=== PATIENT | male | born 1965 | race Caucasian/White ===

== ENCOUNTER 2017-12-18 03:10 | Inpatient (IN) | payer BC ==
[2017-12-18] MEDS: ONDANSETRON 4MG/2ML VIAL (J2405) IV (04:00)
[2017-12-18] MEDS: NS 1,000 ML IV (04:00)
[2017-12-18 04:28] LABS: BASO # 0.1 10^3/uL (0.0-0.2); BASO % 0.2 % (0.0-1.0); EOS % 0.1 % (0.0-3.0); HEMATOCRIT 48.7 % (42.0-52.0); HEMOGLOBIN 16.8 g/dl (14.0-18.0); IMMATURE GRANULOCYTE % 0.9 % (0-3.0); LYMPH # 1.8 10^3/uL (1.5-4.5); MEAN CORPUSCULAR HEMOGLOBIN 30.1 pg (27.0-33.0); MEAN CORPUSCULAR HGB CONC 34.5 g/dl (32.0-36.5); MEAN CORPUSCULAR VOLUME 87.1 fl (80.0-96.0); MONO # 0.9 10^3/uL (0.0-0.8); MONO % 3.7 % (0.0-5.0); NEUTROPHILS # 22.5 10^3/uL (1.8-7.7); NEUTROPHILS % 88.1 % (36.0-66.0); PLATELET COUNT, AUTOMATED 213 10^3/uL (150-450); RED BLOOD COUNT 5.59 10^6/uL (4.30-6.10); RED CELL DISTRIBUTION WIDTH 12.6 % (11.5-14.5); WHITE BLOOD COUNT 25.6 10^3/uL (4.0-10.0)
[2017-12-18] MEDS: MORPHINE 4 MG/ML 1ML VIAL (J2270) IV ×5 (04:28→16:12)
[2017-12-18 04:52] LABS: ALBUMIN 3.2 GM/DL (3.2-5.2); ALBUMIN/GLOBULIN RATIO 0.86 (1.00-1.93); ALKALINE PHOSPHATASE 78 U/L (45-117); ALT/SGPT 37 U/L (12-78); ANION GAP 10 MEQ/L (8-16); AST/SGOT 18 U/L (7-37); BILIRUBIN,DIRECT 0.3 MG/DL (0.0-0.2); BILIRUBIN,TOTAL 1.1 MG/DL (0.2-1.0); BLOOD UREA NITROGEN 21 MG/DL (7-18); CALCIUM LEVEL 8.6 MG/DL (8.5-10.1); CARBON DIOXIDE LEVEL 25 MEQ/L (21-32); CHLORIDE LEVEL 101 MEQ/L (98-107); CREATININE FOR GFR 1.07 MG/DL (0.70-1.30); GLOMERULAR FILTRATION RATE > 60.0 (>56); GLUCOSE, FASTING 177 MG/DL (70-100); LIPASE 121 U/L (73-393); POTASSIUM SERUM 4.2 MEQ/L (3.5-5.1); SODIUM LEVEL 136 MEQ/L (136-145); TOTAL PROTEIN 6.9 GM/DL (6.4-8.2)
[2017-12-18 04:55] LABS: LACTIC ACID SEPSIS PROTOCOL 1.9 MMOL/L (0.4-2.0)
[2017-12-18] MEDS ORDERED: ISOVUE-370 76% 100ML VIAL (Q9967) As Ordered (04:57)
[2017-12-18] MEDS: CIPROFLOXACIN 400 MG in APPROPRIATE DILUENT 1 EA IV ×2 (05:58→17:40)
[2017-12-18] MEDS: HEPARIN SOD (PORCINE) 5000 UNITS/ML VIAL SC ×3 (06:00→23:37)
[2017-12-18] MEDS: metroNIDAZOLE 500 MG in APPROPRIATE DILUENT 1 EA IV ×3 (06:59→23:40)
[2017-12-18] MEDS ORDERED: ONDANSETRON 4MG/2ML VIAL (J2405) IV (08:00)
[2017-12-18] MEDS ORDERED: ACETAMINOPHEN TAB 650MG DOSE (2X325MG) PO (08:00)
[2017-12-18] MEDS: LR 1,000 ML IV ×3 (08:31→23:40)
[2017-12-18] MEDS: SENOKOT S TAB PO ×2 (10:25→20:20)
[2017-12-18] MEDS: PANTOPRAZOLE 40MG INJ (PROTONIX) (C9113) IV (10:47)
[2017-12-18] MEDS ORDERED: LIDOCAINE 1% MDV 20ML VIAL As Ordered (14:10)
[2017-12-18] MEDS: NORCO, ANEXSIA 5/325MG TABLET (HYDROcodone/ACETAMINOPHEN) PO ×2 (16:13→23:38)
[2017-12-19] MEDS: CIPROFLOXACIN 400 MG in APPROPRIATE DILUENT 1 EA IV ×2 (05:07→17:46)
[2017-12-19] MEDS: HEPARIN SOD (PORCINE) 5000 UNITS/ML VIAL SC ×3 (05:08→21:11)
[2017-12-19] MEDS: KETOROLAC 30 MG/ML VIAL (J1885) IV (05:08)
[2017-12-19] MEDS: metroNIDAZOLE 500 MG in APPROPRIATE DILUENT 1 EA IV ×3 (06:14→22:34)
[2017-12-19 06:30] LABS: HEMATOCRIT 42.6 % (42.0-52.0); MEAN CORPUSCULAR HEMOGLOBIN 29.8 pg (27.0-33.0); MEAN CORPUSCULAR HGB CONC 33.3 g/dl (32.0-36.5); MEAN CORPUSCULAR VOLUME 89.3 fl (80.0-96.0); PLATELET COUNT, AUTOMATED 197 10^3/uL (150-450); RED BLOOD COUNT 4.77 10^6/uL (4.30-6.10); RED CELL DISTRIBUTION WIDTH 12.8 % (11.5-14.5); WHITE BLOOD COUNT 17.8 10^3/uL (4.0-10.0)
[2017-12-19 06:40] LABS: HEMOGLOBIN 14.2 g/dl (14.0-18.0)
[2017-12-19 06:48] LABS: ANION GAP 9 MEQ/L (8-16); BLOOD UREA NITROGEN 19 MG/DL (7-18); CALCIUM LEVEL 8.5 MG/DL (8.5-10.1); CARBON DIOXIDE LEVEL 26 MEQ/L (21-32); CHLORIDE LEVEL 102 MEQ/L (98-107); CREATININE FOR GFR 0.86 MG/DL (0.70-1.30); GLOMERULAR FILTRATION RATE > 60.0 (>56); GLUCOSE, FASTING 135 MG/DL (70-100); MAGNESIUM LEVEL 1.9 MG/DL (1.8-2.4); POTASSIUM SERUM 3.8 MEQ/L (3.5-5.1); SODIUM LEVEL 137 MEQ/L (136-145)
[2017-12-19] MEDS: LR 1,000 ML IV ×3 (09:17→23:42)
[2017-12-19] MEDS: SENOKOT S TAB PO ×2 (09:18→21:10)
[2017-12-19] MEDS: INFLUENZA QUADRIVALENT PF VACCINE 0.5ML SYRINGE (90686) IM (09:19)
[2017-12-19] MEDS: PANTOPRAZOLE 40MG INJ (PROTONIX) (C9113) IV (09:19)
[2017-12-19] MEDS: SIMETHICONE 80 MG CHEW TAB PO ×3 (13:35→21:10)
[2017-12-20] MEDS: CIPROFLOXACIN 400 MG in APPROPRIATE DILUENT 1 EA IV ×2 (05:40→17:05)
[2017-12-20] MEDS: HEPARIN SOD (PORCINE) 5000 UNITS/ML VIAL SC ×3 (05:41→21:47)
[2017-12-20 06:02] LABS: HEMATOCRIT 40.8 % (42.0-52.0); MEAN CORPUSCULAR HEMOGLOBIN 29.8 pg (27.0-33.0); MEAN CORPUSCULAR HGB CONC 34.3 g/dl (32.0-36.5); MEAN CORPUSCULAR VOLUME 86.8 fl (80.0-96.0); PLATELET COUNT, AUTOMATED 214 10^3/uL (150-450); RED CELL DISTRIBUTION WIDTH 12.3 % (11.5-14.5)
[2017-12-20 06:35] LABS: ANION GAP 10 MEQ/L (8-16); BLOOD UREA NITROGEN 15 MG/DL (7-18); CALCIUM LEVEL 8.6 MG/DL (8.5-10.1); CARBON DIOXIDE LEVEL 25 MEQ/L (21-32); CHLORIDE LEVEL 103 MEQ/L (98-107); CREATININE FOR GFR 0.61 MG/DL (0.70-1.30); GLOMERULAR FILTRATION RATE > 60.0 (>56); GLUCOSE, FASTING 109 MG/DL (70-100); MAGNESIUM LEVEL 1.9 MG/DL (1.8-2.4); POTASSIUM SERUM 3.8 MEQ/L (3.5-5.1); SODIUM LEVEL 138 MEQ/L (136-145)
[2017-12-20] MEDS: metroNIDAZOLE 500 MG in APPROPRIATE DILUENT 1 EA IV ×3 (06:46→22:46)
[2017-12-20] MEDS: SIMETHICONE 80 MG CHEW TAB PO ×4 (09:44→21:46)
[2017-12-20] MEDS: PANTOPRAZOLE 40MG INJ (PROTONIX) (C9113) IV (09:45)
[2017-12-20] MEDS: SENOKOT S TAB PO ×2 (09:45→21:46)
[2017-12-20] MEDS: LR 1,000 ML IV (09:53)
[2017-12-20] MEDS: NORCO, ANEXSIA 5/325MG TABLET (HYDROcodone/ACETAMINOPHEN) PO (17:07)
[2017-12-20] MEDS: MORPHINE 4 MG/ML 1ML VIAL (J2270) IV (18:43)
[2017-12-20] MEDS: KETOROLAC 30 MG/ML VIAL (J1885) IV (18:44)
[2017-12-21] MEDS: CIPROFLOXACIN 400 MG in APPROPRIATE DILUENT 1 EA IV ×2 (06:05→17:09)
[2017-12-21] MEDS: HEPARIN SOD (PORCINE) 5000 UNITS/ML VIAL SC ×3 (06:05→22:03)
[2017-12-21] MEDS: metroNIDAZOLE 500 MG in APPROPRIATE DILUENT 1 EA IV ×3 (07:26→22:05)
[2017-12-21 07:40] LABS: HEMATOCRIT 45.2 % (42.0-52.0); HEMOGLOBIN 15.9 g/dl (14.0-18.0); MEAN CORPUSCULAR HEMOGLOBIN 30.5 pg (27.0-33.0); MEAN CORPUSCULAR HGB CONC 35.2 g/dl (32.0-36.5); MEAN CORPUSCULAR VOLUME 86.8 fl (80.0-96.0); PLATELET COUNT, AUTOMATED 232 10^3/uL (150-450); RED BLOOD COUNT 5.21 10^6/uL (4.30-6.10); RED CELL DISTRIBUTION WIDTH 12.3 % (11.5-14.5)
[2017-12-21 08:07] LABS: ANION GAP 9 MEQ/L (8-16); BLOOD UREA NITROGEN 13 MG/DL (7-18); CALCIUM LEVEL 8.1 MG/DL (8.5-10.1); CARBON DIOXIDE LEVEL 26 MEQ/L (21-32); CHLORIDE LEVEL 103 MEQ/L (98-107); CREATININE FOR GFR 0.66 MG/DL (0.70-1.30); GLOMERULAR FILTRATION RATE > 60.0 (>56); GLUCOSE, FASTING 158 MG/DL (70-100); SODIUM LEVEL 138 MEQ/L (136-145)
[2017-12-21] MEDS: SENOKOT S TAB PO ×2 (09:00→22:04)
[2017-12-21] MEDS: SIMETHICONE 80 MG CHEW TAB PO ×4 (09:05→22:03)
[2017-12-21] MEDS: PANTOPRAZOLE 40MG INJ (PROTONIX) (C9113) IV (09:06)
[2017-12-21] MEDS: KETOROLAC 30 MG/ML VIAL (J1885) IV (13:18)
[2017-12-22] MEDS: HEPARIN SOD (PORCINE) 5000 UNITS/ML VIAL SC ×3 (05:59→21:09)
[2017-12-22] MEDS: CIPROFLOXACIN 400 MG in APPROPRIATE DILUENT 1 EA IV (05:59)
[2017-12-22 07:32] LABS: HEMATOCRIT 42.3 % (42.0-52.0); HEMOGLOBIN 14.5 g/dl (14.0-18.0); MEAN CORPUSCULAR HGB CONC 34.3 g/dl (32.0-36.5); MEAN CORPUSCULAR VOLUME 87.6 fl (80.0-96.0); PLATELET COUNT, AUTOMATED 254 10^3/uL (150-450); RED BLOOD COUNT 4.83 10^6/uL (4.30-6.10); RED CELL DISTRIBUTION WIDTH 12.4 % (11.5-14.5); WHITE BLOOD COUNT 11.4 10^3/uL (4.0-10.0)
[2017-12-22 08:41] LABS: ANION GAP 6 MEQ/L (8-16); BLOOD UREA NITROGEN 12 MG/DL (7-18); CALCIUM LEVEL 8.2 MG/DL (8.5-10.1); CARBON DIOXIDE LEVEL 29 MEQ/L (21-32); CHLORIDE LEVEL 102 MEQ/L (98-107); CREATININE FOR GFR 0.71 MG/DL (0.70-1.30); GLOMERULAR FILTRATION RATE > 60.0 (>56); GLUCOSE, FASTING 139 MG/DL (70-100); MAGNESIUM LEVEL 2.1 MG/DL (1.8-2.4); POTASSIUM SERUM 3.4 MEQ/L (3.5-5.1); SODIUM LEVEL 137 MEQ/L (136-145)
[2017-12-22] MEDS: SIMETHICONE 80 MG CHEW TAB PO ×4 (08:44→21:09)
[2017-12-22] MEDS: SENOKOT S TAB PO ×2 (08:44→21:09)
[2017-12-23] MEDS: LevoFLOXacin 750 MG TABLET PO (06:06)
[2017-12-23] MEDS: HEPARIN SOD (PORCINE) 5000 UNITS/ML VIAL SC (06:07)
[2017-12-23 07:18] LABS: HEMATOCRIT 44.2 % (42.0-52.0); HEMOGLOBIN 15.4 g/dl (14.0-18.0); MEAN CORPUSCULAR HEMOGLOBIN 30.3 pg (27.0-33.0); MEAN CORPUSCULAR HGB CONC 34.8 g/dl (32.0-36.5); PLATELET COUNT, AUTOMATED 288 10^3/uL (150-450); RED BLOOD COUNT 5.08 10^6/uL (4.30-6.10); RED CELL DISTRIBUTION WIDTH 12.5 % (11.5-14.5); WHITE BLOOD COUNT 11.4 10^3/uL (4.0-10.0)
[2017-12-23 07:31] LABS: ANION GAP 7 MEQ/L (8-16); BLOOD UREA NITROGEN 12 MG/DL (7-18); CALCIUM LEVEL 8.3 MG/DL (8.5-10.1); CARBON DIOXIDE LEVEL 27 MEQ/L (21-32); CHLORIDE LEVEL 106 MEQ/L (98-107); CREATININE FOR GFR 0.66 MG/DL (0.70-1.30); GLOMERULAR FILTRATION RATE > 60.0 (>56); GLUCOSE, FASTING 110 MG/DL (70-100); MAGNESIUM LEVEL 1.9 MG/DL (1.8-2.4); POTASSIUM SERUM 3.6 MEQ/L (3.5-5.1); SODIUM LEVEL 140 MEQ/L (136-145)
== END 2017-12-23 12:25 | disposition home or self-care (01) | DRG 244 ==
LOC: M PED 12-20 17:57 → M ED 03:10 → M ED INP 07:49 → M MSPAV 10:08
PROC: 0W9J30Z Drainage of Pelvic Cavity with Drainage Device, Percutaneous Approach (ICD-10-PCS; principal; 2017-12-18)
DX: K57.20 Diverticulitis of large intestine with perforation and abscess without bleeding (principal); I10 Essential (primary) hypertension; G47.33 Obstructive sleep apnea (adult) (pediatric); Z91.19 Patient's noncompliance with other medical treatment and regimen; K59.00 Constipation, unspecified

== ENCOUNTER 2018-02-24 10:22 | Day surgery (SDC) | payer BC ==
[2018-02-24] MEDS: NS 1,000 ML IV (10:42)
[2018-02-24] MEDS ORDERED: PROPOFOL 200 MG/20 ML VIAL As Ordered ×3 (11:05→11:30)
[2018-02-24] MEDS ORDERED: LIDOCAINE 2% INJ 100 MG/5 ML SDV (FOR ANES.) As Ordered ×3 (11:05→11:12)
== END 2018-02-24 12:17 | disposition home or self-care (01) ==
LOC: M OPP 10:22
DX: K64.9 Unspecified hemorrhoids (principal); K52.9 Noninfective gastroenteritis and colitis, unspecified; K57.30 Diverticulosis of large intestine without perforation or abscess without bleeding; K57.32 Diverticulitis of large intestine without perforation or abscess without bleeding; G47.30 Sleep apnea, unspecified; Z80.0 Family history of malignant neoplasm of digestive organs
CPT/HCPCS: 45380

== ENCOUNTER 2019-02-01 17:07 | Inpatient (IN) | payer BC ==
[~2019-02-01] VITALS: Ht 175.3 cm; Wt 104.5 kg
[~2019-02-01 17:07] MED LIST: CIPR500T4 OR; FLAG500T OR; LEVA750T7 PO; LISI10TA4 OR; METO25TA2 OR
[2019-02-01] MEDS ORDERED: NS 1,000 ML IV ONE (17:45)
[2019-02-01 18:04] LABS: BASO # 0.1 10^3/uL (0.0-0.2); BASO % 0.3 % (0.0-1.0); EOS # 0.1 10^3/uL (0.0-0.50); EOS % 0.5 % (0.0-3.0); HEMOGLOBIN 14.8 g/dl (13.5-17.5); LYMPH # 2.4 10^3/uL (1.5-4.5); LYMPH % 15.5 % (24.0-44.0); MEAN CORPUSCULAR HEMOGLOBIN 29.2 pg (27.0-33.0); MEAN CORPUSCULAR HGB CONC 33.6 g/dl (32.0-36.5); MONO # 1.1 10^3/uL (0.0-0.8); MONO % 6.7 % (0.0-5.0); NEUTROPHILS % 76.4 % (36.0-66.0); PLATELET COUNT, AUTOMATED 306 10^3/uL (150-450); RED BLOOD COUNT 5.06 10^6/uL (4.30-6.10); WHITE BLOOD COUNT 15.8 10^3/uL (4.0-10.0)
[2019-02-01] MEDS ORDERED: ACETAMINOPHEN TAB 650MG DOSE (2X325MG) PO ONE (18:30)
[2019-02-01 18:31] LABS: ALBUMIN 2.9 GM/DL (3.2-5.2); ALT/SGPT 18 U/L (12-78); BILIRUBIN,DIRECT 0.1 MG/DL (0.0-0.2); BILIRUBIN,TOTAL 0.4 MG/DL (0.2-1.0); BLOOD UREA NITROGEN 11 MG/DL (7-18); CALCIUM LEVEL 8.8 MG/DL (8.5-10.1); CARBON DIOXIDE LEVEL 27 MEQ/L (21-32); CHLORIDE LEVEL 101 MEQ/L (98-107); CREATININE FOR GFR 0.75 MG/DL (0.70-1.30); GLOMERULAR FILTRATION RATE > 60.0 (>56); GLUCOSE, FASTING 112 MG/DL (70-100); LIPASE 91 U/L (73-393); POTASSIUM SERUM 4.4 MEQ/L (3.5-5.1); SODIUM LEVEL 135 MEQ/L (136-145); TOTAL PROTEIN 7.4 GM/DL (6.4-8.2)
[2019-02-01] MEDS ORDERED: ISOVUE-370 76% 100ML VIAL (Q9967) As Ordered ONE (18:37)
[2019-02-01] MEDS ORDERED: KETOROLAC 30 MG/ML VIAL (J1885) IV ONE (19:00)
[2019-02-01] MEDS ORDERED: MORPHINE 4 MG/ML 1ML VIAL/SYRINGE (J2270) IV ONE (20:00)
[2019-02-01] MEDS ORDERED: ONDANSETRON 4MG/2ML VIAL (J2405) IV ONE (20:00)
--- NOTE | 2019-02-01 20:50 | REPVR ---
EXAM: CT Abdomen and Pelvis With Contrast EXAM DATE/TIME: 02/01/2019 8:06 PM CLINICAL HISTORY: 54 years old, male; Abdominal pain; Additional info: H/o diverticulitis, rlq pain TECHNIQUE: Imaging protocol: Axial computed tomography images of the abdomen and pelvis with intravenous contrast. Coronal and sagittal reformatted images were created and reviewed. Radiation optimization: All CT scans at this facility use at least one of these dose optimization techniques: automated exposure control; mA and/or kV adjustment per patient size (includes targeted exams where dose is matched to clinical indication); or iterative reconstruction. Contrast material: ISO 370; Contrast volume: 75 ml; Contrast route: IV; COMPARISON: CT ABD/PEL W/IV CONTRAST ONLY 12/18/2017 5:04 AM FINDINGS: Lungs: Minimal bibasilar fibro-atelectatic change. ABDOMEN: Liver: Normal. No mass. Gallbladder and bile ducts: Normal. No calcified stones. No ductal dilation. Pancreas: Normal. No ductal dilation. Spleen: Normal. No splenomegaly. Adrenals: Normal. No mass. Kidneys and ureters: Normal. No hydronephrosis. Stomach and bowel: There is colonic diverticulosis with wall thickening of the mid to distal sigmoid with pericolonic induration consistent with mild diverticulitis. There is a small pericolonic abscess or colocolonic fistula with a small fluid collection measuring 13 mm in diameter which is slightly decreased since the prior study. It is from this area of inflammation but a tract extends toward the fluid collection in the right lateral abdominal wall. Appendix: A normal appendix is seen. PELVIS: Bladder: Unremarkable as visualized. Reproductive: Unremarkable as visualized. ABDOMEN and PELVIS: Intraperitoneal space: Normal. No free air. No significant fluid collection. Bones/joints: No acute fracture. No dislocation. Soft tissues: Large inhomogeneous low attenuation mass along the deep aspect of the right transversus abdominis muscle at the level of the pelvis with a central Hounsfield measurement of 22 and measures approximately 7.5 x 8.5 x 7.8 cm consistent with abscess or possibly hematoma. There is slight surrounding induration. The appendix is immediately adjacent and medial. There is soft tissue stranding with a confluent tract or structure which extends to the distal sigmoid colon. Vasculature: There is mild calcification of the abdominal aorta with extension into the iliac arteries. Lymph nodes: Normal. No enlarged lymph nodes. IMPRESSION: 1. New low attenuation mass along the deep aspect of the right transversus abdominis muscle within the pelvis measuring 7.5 x 8.5 x 7.8 cm which extends across the deep aspect of the linea semilunaris and deep to the lateral aspect of the caudal right rectus abdominis. There is slight surrounding induration with a tract extending to the distal sigmoid at midline and is viewed with suspicion for abscess. Hematoma is not excluded. 2. 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 It is from this area of inflammatory change that a tract or fistula is noted to extend from the low attenuation mass in the right pelvis. 3. A normal appendix is seen. Electronically signed by: Chris Qureshi On 02/01/2019 20:49:57 PM
[2019-02-01] MEDS ORDERED: D3 H2000 PO (21:25)
[2019-02-01] MEDS ORDERED: ACET-897 PO (21:25)
[2019-02-01] MEDS ORDERED: BACITAB PO (21:25)
[2019-02-01] MEDS ORDERED: ONDANSETRON 4MG/2ML VIAL (J2405) IV PRN (22:30)
[2019-02-01] MEDS ORDERED: MORPHINE 4 MG/ML 1ML VIAL/SYRINGE (J2270) IV PRN (22:30)
[2019-02-01] MEDS ORDERED: ACETAMINOPHEN TAB 650MG DOSE (2X325MG) PO PRN (22:30)
[2019-02-01] MEDS ORDERED: KETOROLAC 30 MG/ML VIAL (J1885) IV PRN (22:30)
[2019-02-01] MEDS ORDERED: NORCO, ANEXSIA 5/325MG TABLET (HYDROcodone/ACETAMINOPHEN) PO PRN (22:30)
[2019-02-01 23:06] VITALS: BP 149/84
--- NOTE | 2019-02-01 23:14 | HPE ---
DATE OF ADMISSION: 02/01/2019 ADMISSION DIAGNOSIS: Large right lower quadrant intra-abdominal abscess, likely secondary to diverticulitis. 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 He has a past history of diverticulosis and has been treated for diverticulitis with an abscess as recently as December of 2017. On that occasion, a percutaneous drain was placed with resolution of his abscess. He had one prior back in 2009 for diverticulitis with a contained perforation, which was treated with antibiotics and apparently did not require drainage. He did have a colonoscopy in 2010 and then again in 2017, which confirmed diverticulosis without any evidence of polyps or tumor. The patient reports that he has now been ill for about a month. He reports he started having some discomfort in the lower abdomen, and he cut his diet back to liquids to try to avoid having worse problems. He has been drinking apple juice and eating very little in the way of solid food for much of this past month. He reports that his weight is down perhaps 20-30 pounds. He reports that if he tries solid food, he gets more abdominal cramping and pain. He has been having some diarrhea. He does report having had fevers, and he has been checking it and noting that it goes up to like 100.7, but it has not gotten worse than that, so he was trying to put off any visit to the hospital. Pain has gradually worsened, however, over time and has become painful with ambulation or coughing. Pain is primarily localized now to his right lower quadrant. He reports that he is voiding acceptably, though he notes that his urine is fairly dark. He has not noticed any rectal bleeding or melena. He presented to the emergency department where he was found to have a slight elevation of his white blood cell count to 16,000. CT scan was done, which identified a large abscess in the right lower quadrant. This was in the region where one would anticipate his appendix but a normal appendix was identified by the radiologist. There was a suggestion that there may be some sort of tract or fistula extending from the sigmoid colon lower in the pelvis along the midline out to the area of the abscess. The patient is now admitted to begin antibiotics and arrange drainage of his abscess. MEDICATIONS: The patient reports that he is not currently taking any prescription medications. He has been using some Bacid caplets hoping that this would be of benefit and using Tylenol as needed for discomfort. He has been taking some vitamin D. ALLERGIES: The patient denies any known drug allergies. MEDICAL HISTORY: The patient currently has no primary physician. He was diagnosed 8 to 10 years ago with obstructive sleep apnea and uses a continuous positive airway pressure (CPAP) device at home. He uses this regularly by his report. He reports that he has a history of hypertension but has not been on medications recently. SURGICAL HISTORY: Patient denies any surgery other than his colonoscopies. SOCIAL HISTORY: The patient is . 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 He does not smoke and denies any significant alcohol intake. FAMILY HISTORY: Family history is really noncontributory. REVIEW OF SYSTEMS: The patient denies any history of seizure or stroke. He has had no chest pain or palpitations. He denies cough, wheezing or sputum production. He has had no history of ulcer, hepatitis, pancreatitis or yellow jaundice. He has no dysuria or hematuria. He has no bone or joint problems. He denies any history of deep vein thrombosis (DVT) or pulmonary embolus. He denies any history of diabetes or thyroid problems. He does apparently have a diagnosis of some psoriasis but is not on any systemic treatment for this. PHYSICAL EXAMINATION: In the emergency department reveals a pleasant man lying quietly on the emergency room (ER) stretcher. His most recent vital signs showed a temperature at 1800 hours of 101.2 with a pulse of 74 and blood pressure of 143/83, and a respiratory rate of 17. He is alert and oriented. Skin is warm and dry. Sclerae are anicteric. Mucous membranes are moist. Neck is supple without mass, and he has no cervical bruit. Heart: Exam shows a regular rhythm and he is not tachycardiac. The lungs are clear. The abdomen is somewhat protuberant and mildly obese. He has active bowel sounds. Palpation reveals the abdomen to be soft throughout with the exception of a firm mass-like tender area low in the right lower quadrant, which is about 10 cm in diameter. There is no evident hernia. Skin exam shows some scattered small plaque-like areas of scaling consistent with psoriasis. He has palpable peripheral pulses and no evident edema. His laboratory studies show a white count of 16 with a differential count of 76% neutrophils, 16% lymphocytes and 7% monocytes. Hemoglobin is 15 with a hematocrit of 44 and the platelet count is 306,000. Chemistry profile shows a sodium of 135, potassium 4.4, chloride 101, CO2 of 27, BUN of 11, creatinine 0.7 and a glucose of 112. Liver function tests are all normal with a total protein of 7.4 and an albumin of 2.9. Lipase is 91 and a lactic acid was 1.4. Urinalysis showed a pH of 7 with a specific gravity of 1.020. The microscopic exam showed 3 white cells and 25 red cells per high-power field but was not truly suggestive of a urinary tract infection. CT scan images I reviewed personally. The radiologist identified a maximally 8.5 cm area in the right lower quadrant abutting the anterior abdominal wall consistent with an abscess. He was noted to have diverticulosis with what the radiologist felt was some mild diverticulitis of the mid to distal sigmoid colon. He thought that a fistula might exist between the area of the abscess and the sigmoid colon. He did report seeing a normal appendix. IMPRESSION: 1. Large abdominal abscess, likely secondary to diverticulitis. 2. Obstructive sleep apnea. 3. Psoriasis. PLAN: Patient is being admitted for management of his significant abscess. He will require percutaneous drainage, and this should be possible by ultrasound guidance and I will order this for tomorrow. He will receive some maintenance IV fluid with Ringer's lactate. I will start him on Zosyn for antibiotic coverage. I will have him wear some support hose, but I will not start any pharmacologic prophylaxis at this time. He will be allowed to take some clear liquids as desired but will keep him nothing by mouth after midnight for his drainage tomorrow. The patient was counseled regarding the plan and had an opportunity to ask questions. He desires to proceed as I have outlined his care.
[2019-02-01] MEDS: PIPERACILLIN/TAZOBACTAM SOD 3.375 GM in D5W MINI-BAG PLUS 50 ML IV SCH (23:57)
[2019-02-02] MEDS: LR 1,000 ML IV SCH ×2 (01:08→10:00)
[2019-02-02] MEDS ORDERED: FLUBLOK(EGG FREE)(QUAD)INFLUENZA VACC 0.5ML SYRINGE (90682)18YRS&OLDER IM ONE ×2 (01:45→09:00)
[2019-02-02 04:30] VITALS: BP 142/87
[2019-02-02] MEDS: PIPERACILLIN/TAZOBACTAM SOD 3.375 GM in D5W MINI-BAG PLUS 50 ML IV SCH ×4 (05:06→22:43)
[2019-02-02 08:12] LABS: BASO # 0.1 10^3/uL (0.0-0.2); BASO % 0.3 % (0.0-1.0); EOS # 0.1 10^3/uL (0.0-0.50); EOS % 0.7 % (0.0-3.0); HEMATOCRIT 42.3 % (42.0-52.0); HEMOGLOBIN 14.3 g/dl (13.5-17.5); LYMPH # 2.1 10^3/uL (1.5-4.5); MEAN CORPUSCULAR HEMOGLOBIN 29.7 pg (27.0-33.0); MEAN CORPUSCULAR HGB CONC 33.8 g/dl (32.0-36.5); MEAN CORPUSCULAR VOLUME 87.8 fl (80.0-96.0); MONO # 1.1 10^3/uL (0.0-0.8); MONO % 7.1 % (0.0-5.0); NEUTROPHILS # 11.5 10^3/uL (1.8-7.7); NEUTROPHILS % 77.4 % (36.0-66.0); PLATELET COUNT, AUTOMATED 301 10^3/uL (150-450); RED BLOOD COUNT 4.82 10^6/uL (4.30-6.10); WHITE BLOOD COUNT 14.8 10^3/uL (4.0-10.0)
[2019-02-02 09:58] VITALS: BP 150/88
[2019-02-02] MEDS ORDERED: LIDOCAINE 1% MDV 20ML VIAL As Ordered ONE (12:00)
[2019-02-02 14:00] VITALS: BP 154/78
--- NOTE | 2019-02-02 16:43 | REP ---
ULTRASOUND-GUIDED RIGHT ABDOMINAL ABSCESS DRAIN The procedure was performed under the direct supervision of Dr. Carrion. Patient has a history of a 7.5 x 8.5 x 7.8 centimeter abscess in the right lower quadrant seen on a previous CT scan dated 02/01/2019. The risks and benefits of the procedure were explained to the patient and informed consent was obtained. The right lower quadrant abscess was localized using ultrasound guidance. The skin was prepped and draped in a sterile fashion. 1% lidocaine was used as a local anesthetic. Using ultrasound guidance a 10-Yi Skater APDL was inserted using trocar technique. 275 ml of thick brown/red colored fluid was withdrawn and sent to the lab for analysis. The catheter was affixed to the skin and a sterile dressing was applied. The catheter was connected to a gravity drainage bag. The patient tolerated the procedure well and there were no immediate complications. Reviewed by RAMÓN Pascual 02/02/2019 04:28 P Electronically Signed by Davey Carrion MD 02/02/2019 04:32 P
[2019-02-02 22:00] VITALS: BP 161/92
--- NOTE | 2019-02-02 23:02 | IPN ---
DATE: 02/02/2019 HISTORY The patient was admitted yesterday with a large right lower quadrant abscess felt to be secondary to diverticular disease in the pelvis. He underwent an ultrasound-guided percutaneous drainage earlier today. Fluid was sent for Gram stain and culture and Gram stain shows many white cells and a few gram-positive rods on Gram stain. He tolerated the procedure well and reports that he already feels much less pressure in his right lower quadrant. Vital signs: Show that he has been afebrile since his stay in the emergency department. His pulse is in the 60s and 70s and his blood pressure is good. Room air oxygen saturation is normal. Intake and output shows that he has had adequate urine. PHYSICAL EXAMINATION The patient is alert and appears in good spirits. He does appear more comfortable. Abdomen remains mildly obese but soft. His drain is located in the lateral right lower quadrant and there is some bloody thick fluid in the tubing of the drain. LABS: Laboratory studies show that his white count today is 15 down from 16 last evening. His CBC is otherwise without significant change. IMPRESSION The patient has now had his abscess drained. He will remain on the antibiotics. I will monitor the drain output. He will be allowed to take some clear liquids now and we will see how he tolerates these. If he tolerates the clear liquids we can consider advancing his diet tomorrow. RENETTA
[2019-02-03] MEDS: LR 1,000 ML IV SCH (01:11)
[2019-02-03 02:00] VITALS: BP 137/84
[2019-02-03] MEDS: PIPERACILLIN/TAZOBACTAM SOD 3.375 GM in D5W MINI-BAG PLUS 50 ML IV SCH ×4 (05:01→22:48)
[2019-02-03 06:00] VITALS: BP 162/88
[2019-02-03 10:00] VITALS: BP 159/79
[2019-02-03 14:00] VITALS: BP 179/94
[2019-02-03 18:00] VITALS: BP 162/90
[2019-02-03 20:00] VITALS: BP 174/96
--- NOTE | 2019-02-03 21:48 | IPN ---
DATE: 02/03/2019 HISTORY: The patient was admitted on 02/01/2019 with a large right lower quadrant abscess felt to be secondary to diverticulitis. A drain was placed on 02/02/2019 with a large amount of material returned. The radiology report indicates that 275 mL of brown-red fluid was withdrawn. The drain remains in place. The patient felt almost immediately better. He was started on some clear liquids which he tolerated and today his diet has been advanced to regular. He remains on Zosyn for antibiotic coverage. Vital signs: Show that the patient has been afebrile over the past 24 hours with a pulse in the 50s and 60s and a good blood pressure. Intake and output shows that yesterday he had 2 liters in and 700 recorded out. His drain had 100 mL recorded out this morning. PHYSICAL EXAM: Shows that the patient looks quite comfortable sitting up on the edge of the bed eating regular food. He is alert and oriented. Heart and lung exam is unremarkable. The abdomen is soft. His drain tubing has a small amount of old blood and debris in the tubing, but there is no significant fluid in the bag at this time. IMPRESSION: The patient is doing well since drainage of abscess. PLAN: The antibiotics will be continued. We will see how he tolerates a regular diet. If he does tolerate the diet, we may be able to consider sending him home on oral antibiotics with follow up in the office with a follow-up CT scan and for removal of his drain at a later time. RENETTA
[2019-02-04 02:00] VITALS: BP 160/90
[2019-02-04] MEDS: PIPERACILLIN/TAZOBACTAM SOD 3.375 GM in D5W MINI-BAG PLUS 50 ML IV SCH ×4 (05:26→22:37)
[2019-02-04 06:00] VITALS: BP 168/90
[2019-02-04 07:06] LABS: BASO % 0.4 % (0.0-1.0); EOS # 0.2 10^3/uL (0.0-0.50); EOS % 2.1 % (0.0-3.0); HEMATOCRIT 46.4 % (42.0-52.0); HEMOGLOBIN 15.7 g/dl (13.5-17.5); LYMPH % 18.9 % (24.0-44.0); MEAN CORPUSCULAR HEMOGLOBIN 29.1 pg (27.0-33.0); MEAN CORPUSCULAR HGB CONC 33.8 g/dl (32.0-36.5); MEAN CORPUSCULAR VOLUME 86.1 fl (80.0-96.0); MONO # 0.5 10^3/uL (0.0-0.8); MONO % 4.7 % (0.0-5.0); NEUTROPHILS # 7.9 10^3/uL (1.8-7.7); NEUTROPHILS % 73.1 % (36.0-66.0); PLATELET COUNT, AUTOMATED 369 10^3/uL (150-450); RED BLOOD COUNT 5.39 10^6/uL (4.30-6.10); WHITE BLOOD COUNT 10.8 10^3/uL (4.0-10.0)
[2019-02-04 07:28] LABS: ALBUMIN 2.9 GM/DL (3.2-5.2); ALT/SGPT 18 U/L (12-78); BILIRUBIN,TOTAL 0.4 MG/DL (0.2-1.0); BLOOD UREA NITROGEN 10 MG/DL (7-18); CALCIUM LEVEL 9.1 MG/DL (8.5-10.1); CARBON DIOXIDE LEVEL 25 MEQ/L (21-32); CHLORIDE LEVEL 105 MEQ/L (98-107); CREATININE FOR GFR 0.77 MG/DL (0.70-1.30); GLOMERULAR FILTRATION RATE > 60.0 (>56); GLUCOSE, FASTING 103 MG/DL (70-100); POTASSIUM SERUM 3.9 MEQ/L (3.5-5.1); SODIUM LEVEL 137 MEQ/L (136-145); TOTAL PROTEIN 7.7 GM/DL (6.4-8.2)
[2019-02-04 10:00] VITALS: BP 165/91
[2019-02-04 14:00] VITALS: BP 168/86
[2019-02-04 18:04] VITALS: BP 170/88
[2019-02-04 20:53] VITALS: BP 182/100
[2019-02-05 02:00] VITALS: BP 168/84
[2019-02-05] MEDS: PIPERACILLIN/TAZOBACTAM SOD 3.375 GM in D5W MINI-BAG PLUS 50 ML IV SCH (04:53)
[2019-02-05 06:00] VITALS: BP 196/100
[2019-02-05 06:23] VITALS: BP 168/88
[2019-02-05] MEDS ORDERED: METR-265 PO (10:17)
[2019-02-05] MEDS ORDERED: CIPR500T3 PO (10:17)
== END 2019-02-05 10:52 | disposition home or self-care (01) | DRG 244 ==
LOC: M ED 17:07 → M ED INP 22:32 → M MS4PR 23:13
PROVIDERS: ADMIT Surgery; ATTEND Surgery
PROC: 0W9F30Z Drainage of Abdominal Wall with Drainage Device, Percutaneous Approach (ICD-10-PCS; principal; 2019-02-01)
DX: K57.20 Diverticulitis of large intestine with perforation and abscess without bleeding (principal); G47.33 Obstructive sleep apnea (adult) (pediatric); L40.8 Other psoriasis

== ENCOUNTER → 2019-02-10 | Outpatient (CLI) | payer BC ==
[~2019-02-10] MED LIST changes: +ACET-897 PO; +BACITAB PO; +CIPR500T3 PO; +D3 H2000 PO; +GASTROGRAFIN SOLUTION 30ML (Q9963) As Ordered ONE; +ISOVUE-370 76% 100ML VIAL (Q9967) As Ordered ONE; +METR-265 PO
--- NOTE | 2019-02-11 03:18 | REP ---
Clinical: Abscess. Technique: Axial contrast enhanced images from the lung bases to the pubic symphysis using oral (per protocol) and 100 ml Isovue 370 intravenous contrast material with coronal and sagittal re-formations. Comparison: 02/01/2019. Findings: Pigtail catheter identified in the right lower quadrant with essentially complete collapse of the previously identified abscess collection. Mild/moderate residual surrounding inflammatory stranding suggested. Lung bases demonstrate minimal right basilar dependent changes/atelectasis. Visualized heart and pericardium normal. Liver, spleen, pancreas, gallbladder, bilateral adrenal glands and kidneys are normal. The enteric system is without obstruction or acute inflammatory process. Scattered colonic diverticula noted without acute diverticulitis. Pelvis demonstrates normal bladder and age appropriate prostate/seminal vesicles. No ascites. No free air. No significant adenopathy. Abdominal aorta without aneurysm or dissection. Musculoskeletal structures intact without focal osseous abnormality. Impression: 1. Previously identified abscess cavity in the right lower quadrant appears to be essentially completely resolved and the pigtail catheter is now surrounded by mild/moderate residual inflammatory changes. 2. Scattered diverticulosis without acute diverticulitis. 3. No further acute abdominopelvic pathology appreciated. Electronically Signed by Narinder Hopkins MD 02/11/2019 03:09 A
== END ==
LOC: M RAD 16:11
PROVIDERS: ATTEND Nurse Practitioner
DX: K57.90 Diverticulosis of intestine, part unspecified, without perforation or abscess without bleeding (principal); Z87.19 Personal history of other diseases of the digestive system
CPT/HCPCS: 74177; Q9963; Q9967

== ENCOUNTER → 2019-03-21 | Outpatient (REF) | payer BC ==
[~2019-03-21] MED LIST changes: -GASTROGRAFIN SOLUTION 30ML (Q9963) As Ordered ONE; -ISOVUE-370 76% 100ML VIAL (Q9967) As Ordered ONE
[2019-03-21 18:24] LABS: HEMATOCRIT 47.6 % (42.0-52.0); HEMOGLOBIN 15.5 g/dl (13.5-17.5); MEAN CORPUSCULAR HEMOGLOBIN 30.1 pg (27.0-33.0); MEAN CORPUSCULAR HGB CONC 32.6 g/dl (32.0-36.5); MEAN CORPUSCULAR VOLUME 92.4 fl (80.0-96.0); PLATELET COUNT, AUTOMATED 284 10^3/uL (150-450); RED BLOOD COUNT 5.15 10^6/uL (4.30-6.10); WHITE BLOOD COUNT 17.8 10^3/uL (4.0-10.0)
[2019-03-21 18:52] LABS: ALBUMIN 3.8 GM/DL (3.2-5.2); ALT/SGPT 31 U/L (12-78); BILIRUBIN,TOTAL 0.6 MG/DL (0.2-1.0); BLOOD UREA NITROGEN 12 MG/DL (7-18); CALCIUM LEVEL 9.2 MG/DL (8.5-10.1); CARBON DIOXIDE LEVEL 30 MEQ/L (21-32); CHLORIDE LEVEL 102 MEQ/L (98-107); CREATININE FOR GFR 0.79 MG/DL (0.70-1.30); GLOMERULAR FILTRATION RATE > 60.0 (>56); GLUCOSE, FASTING 65 MG/DL (70-100); POTASSIUM SERUM 3.8 MEQ/L (3.5-5.1); SODIUM LEVEL 139 MEQ/L (136-145); TOTAL PROTEIN 7.9 GM/DL (6.4-8.2)
== END ==
LOC: M SFHCPLAZ 14:41
PROVIDERS: ATTEND Nurse Practitioner Adult Health
DX: R10.31 Right lower quadrant pain (principal)

== ENCOUNTER 2019-03-23 18:16 | Inpatient (IN) | payer BC ==
[~2019-03-23] VITALS: Ht 175.3 cm; Wt 109.6 kg
[2019-03-23] MEDS ORDERED: NORCO, ANEXSIA 5/325MG TABLET (HYDROcodone/ACETAMINOPHEN) PO ONE (19:15)
--- NOTE | 2019-03-23 19:20 | REPVR ---
EXAM: US Scrotum EXAM DATE/TIME: 03/23/2019 6:38 PM CLINICAL HISTORY: 54 years old, male; Groin pain and scrotum pain; Additional info: Scrotal swelling TECHNIQUE: Imaging protocol: Real-time ultrasound of the scrotum and contents with color Doppler and image documentation. COMPARISON: No relevant prior studies available. FINDINGS: Right Testicle: The right testicle measures 4.9 x 3 x 3.3 cm. Left Testicle: The left testicle measures 3.3 x 4.8 x 2.7 cm. The echotexture of the testes is symmetric and homogeneous. There is symmetric blood flow to both testes is demonstrated on color Doppler and pulse Doppler examination.. Epididymides: The right epididymal head measures 6 mm in greatest diameter. 3 simple cysts contiguous with the epididymal head measuring 4, 3 and 3 mm respectively in maximal diameter. The left epididymal head measures 6 mm in maximum diameter. 4 mm simple cyst noted in the head of the left epididymis. Scrotum: There is a small complex right-sided hydrocele. There is a small complex left hydrocele. Soft tissues: There is thickening noted of the right spermatic cord/inguinal canal with maximum diameter 3.4 cm. IMPRESSION: Small bilateral complex hydroceles. 2. Bilateral epididymal simple cysts or spermatoceles 3. Enlargement of the right inguinal canal/spermatic cord structures correlates with the finding of a right inguinal hernia containing fat as demonstrated on CT scan dated 02/10/2019. The technologist who performed the examination indicated the presence of bowel within the inguinal canal.. I cannot confirm that finding on these static images. Electronically signed by: Tisha Mazariegos On 03/23/2019 19:20:23 PM
[2019-03-23] MEDS ORDERED: NS 1,000 ML IV ONE (19:30)
[2019-03-23 20:00] LABS: BASO # 0.1 10^3/uL (0.0-0.2); BASO % 0.3 % (0.0-1.0); EOS # 0.1 10^3/uL (0.0-0.50); EOS % 0.4 % (0.0-3.0); HEMATOCRIT 46.6 % (42.0-52.0); HEMOGLOBIN 15.9 g/dl (13.5-17.5); LYMPH # 1.8 10^3/uL (1.5-4.5); LYMPH % 9.1 % (24.0-44.0); MEAN CORPUSCULAR HEMOGLOBIN 29.9 pg (27.0-33.0); MEAN CORPUSCULAR HGB CONC 34.1 g/dl (32.0-36.5); MEAN CORPUSCULAR VOLUME 87.6 fl (80.0-96.0); MONO # 1.2 10^3/uL (0.0-0.8); MONO % 6.2 % (0.0-5.0); NEUTROPHILS # 16.6 10^3/uL (1.8-7.7); NEUTROPHILS % 83.4 % (36.0-66.0); PLATELET COUNT, AUTOMATED 294 10^3/uL (150-450); RED BLOOD COUNT 5.32 10^6/uL (4.30-6.10); WHITE BLOOD COUNT 19.9 10^3/uL (4.0-10.0)
[2019-03-23 20:10] LABS: INR 1.25; PROTHROMBIN TIME 15.4 SECONDS (11.8-14.0)
[2019-03-23 20:11] LABS: PARTIAL THROMBOPLASTIN TIME 37.4 SECONDS (25.0-38.4)
[2019-03-23 20:22] LABS: ALBUMIN 3.4 GM/DL (3.2-5.2); ALT/SGPT 27 U/L (12-78); BILIRUBIN,DIRECT 0.2 MG/DL (0.0-0.2); BILIRUBIN,TOTAL 0.7 MG/DL (0.2-1.0); BLOOD UREA NITROGEN 13 MG/DL (7-18); CARBON DIOXIDE LEVEL 23 MEQ/L (21-32); CHLORIDE LEVEL 100 MEQ/L (98-107); CREATININE FOR GFR 0.87 MG/DL (0.70-1.30); GLOMERULAR FILTRATION RATE > 60.0 (>56); GLUCOSE, FASTING 121 MG/DL (70-100); SODIUM LEVEL 137 MEQ/L (136-145); TOTAL PROTEIN 7.8 GM/DL (6.4-8.2)
[2019-03-23] MEDS ORDERED: ISOVUE-370 76% 100ML VIAL (Q9967) As Ordered ONE (20:29)
--- NOTE | 2019-03-23 21:28 | REPVR ---
EXAM: CT Abdomen and Pelvis With Contrast EXAM DATE/TIME: 03/23/2019 8:42 PM CLINICAL HISTORY: 54 years old, male; Pain and condition or disease; Hernia; Complications not specified; Inguinal; Abdominal pain; Localized; Lower; Additional info: Right groin pain, hernia evaluation. . . Recent diverticulitis TECHNIQUE: Imaging protocol: Axial computed tomography images of the abdomen and pelvis with intravenous contrast. Coronal and sagittal reformatted images were created and reviewed. Radiation optimization: All CT scans at this facility use at least one of these dose optimization techniques: automated exposure control; mA and/or kV adjustment per patient size (includes targeted exams where dose is matched to clinical indication); or iterative reconstruction. Contrast material: ISOVUE 370; Contrast volume: 100 ml; Contrast route: IV; COMPARISON: CT ABD PELVIS WITH CONTRAST 02/10/2019 5:59 PM FINDINGS: Tubes, catheters and devices: Lungs: Coarse linear pleural based opacity in the right lower lobe suggest discoid atelectasis or scar. Liver: 5 mm Subcapsular cyst noted anteriorly in the lateral segment of the left lobe of the liver. Gallbladder and bile ducts: Normal. No calcified stones. No ductal dilation. Pancreas: Normal. No ductal dilation. Spleen: Normal. No splenomegaly. Adrenals: Normal. No mass. Kidneys and ureters: Normal. No hydronephrosis. Stomach and bowel: Multiple sigmoid colonic diverticula are noted. Mucosal thickening noted of the mid/distal sigmoid colon with pericolonic inflammation. Fluid noted within the rectum suggests the presence of diarrhea. Appendix: No evidence of appendicitis. Intraperitoneal space:There are 2 abscesses. One interloop abscess noted within the sigmoid mesocolon:(Series 401 images 102 through 110) measuring 2 x 2.5 x 1.9 cm.. This communicates with a small tubular channel of air and surrounding soft tissue thickening that extends superiorly along the right lateral border of the sigmoid colon . Second abscess is noted at the base of the cecum measuring approximately 4.4 x 3.3 x 3.7 cm. This is in the same location as a percutaneously placed drain was positioned on previous CT scan dated 02/10/2019. . . Vasculature: Normal. No abdominal aortic aneurysm. Lymph nodes: Normal. No enlarged lymph nodes. Bladder: Unremarkable as visualized. Reproductive: Small hydroceles are seen bilaterally. The prostate measures 3.8 x 3.8 x 3.7 cm. Calcifications noted within the prostate. Bones/joints: No acute fracture. No dislocation. Soft tissues: The inflammation surrounding the abscess in the right lower quadrant extends along the margins of the right inguinal canal with fluid and air dissecting along the spermatic cord and into the right hemiscrotum. Hazy density reflecting induration surrounds the right inguinal canal extending into the right hemiscrotum. There are no bowel loops noted within the right inguinal hernia. There is a small left inguinal hernia containing fat. IMPRESSION: 1. Diverticulitis with 2 pelvic abscesses. One interloop abscess/contained perforation located in the sigmoid mesocolon and a second abscess in the right lower quadrant located at the base of the cecum at the location of the previous drain placement. 2. Inflammatory changes including subcutaneous air and fluid that may reflect inferior extension of the abscess located in the right lower quadrant dissect along the right inguinal canal and spermatic cord into the right hemiscrotum. There is induration of the soft tissues overlying the right inguinal canal and right hemiscrotum. Necrotizing fasciitis is a concern 3. Small hydroceles bilaterally. 4. Liver cyst. COMMENT: Consistent with the [employer]'s Incidental Findings Committee Report (J Am Esha Radiol 2010): Unless the patient's specific circumstances suggest otherwise, any liver lesion 0.5 cm or less, any cystic kidney lesion less than 1.0 cm, and/or any adrenal lesion 1.0 cm or less not otherwise characterized in this report as possessing suspicious or indeterminate imaging features is/are highly likely to be benign and do not require follow-up imaging or biopsy. Electronically signed by: Tisha Mazariegos On 03/23/2019 21:28:07 PM
[2019-03-23] MEDS ORDERED: PIPERACILLIN/TAZOBACTAM SOD 3.375 GM in D5W MINI-BAG PLUS 50 ML IV ONE (21:30)
[2019-03-23] MEDS ORDERED: BUPIVACAINE HCL 0.25% 30 ML VIAL As Ordered ONE (21:44)
[2019-03-23] MEDS ORDERED: LIDOCAINE 1% SDV INJ 30 ML VIAL As Ordered ONE (21:44)
--- NOTE | 2019-03-23 21:45 | HPEPDOC ---
General Surgery H&P Date of Admission Mar 23, 2019 Attending Physician: BEBA GORDILLO MD History and Physical CHIEF COMPLAINT: Right-sided abdominal pain, right groin pain and swelling HISTORY OF PRESENT ILLNESS: Patient is a 54-year-old gentleman known to me from prior admissions for diverticulitis with abscess. He was last admitted back in January into February [address] Barrera for another bout of diverticulitis with a right-sided abscess. At that time the percutaneous drain was placed which resolve the abscess. The drain is removed at about February 10 or . He reports that he was feeling well up until 2 weeks ago he started having right-sided abdominal discomfort. He approached his medical doctor and started him on antibiotics for presumed recurrence of his diverticulitis. He was followed up 10 days after. He reports some improvement of the abdominal discomfort. While getting out of the clinic, walking in the parking led to his car, patient reports he started having bouts of coughing with sudden onset of pain in his right groin and a sensation of a popping sound. After which she started noticing swelling on his right groin with associated discomfort. He denies nausea or vomiting though he feels ill. He tried to observe this would go away for a couple days but the pain worsened and thus he presented to the emergency room tonight. ALLERGIES: Please see below. HOME MEDICATIONS: Please see below. PAST MEDICAL HISTORY: 1. recurrent diverticulitis with abscess 2. hypertension (not on any meds) 3. Sleep apnea on CPAP 4. PAST SURGICAL HISTORY: 1. percutaneous drainage of abscess 2. colonoscopy. PERSONAL/SOCIAL HISTORY: Denies smoking, alcohol use, or recreational drug use. REVIEW OF SYSTEMS: GENERAL: Patient has been having some sort of abdominal problems for 2 weeks, feeling ill for 3 days now. He did not notice any febrile episodes but is noted to have low-grade fever in the emergency room. HEENT: Denies blurred vision and double vision. Denies ear symptoms. Denies hoarseness. NECK: Denies any neck pain. CARDIOVASCULAR: Denies chest pain and palpitations. MUSCULOSKELETAL: Denies arthralgias, back pain and thrombophlebitis. SKIN: Denies rash. NEUROLOGIC: Denies headache, stroke and transient ischemic attack. PSYCHIATRIC: Denies anxiety and depression. ENDOCRINE: Denies thyroid disease. HEMATOLOGY/ONCOLOGY: Denies any bleeding or clotting disorder. HEART: Denies any chest pains, palpitations, paroxysmal dyspnea, orthopnea. PULMONARY: Denies chronic cough, dyspnea and wheezing. Patient has a known history of for postoperative sleep apnea uses CPAP device at home GASTROINTESTINAL: Patient with previous history of diverticulitis with abscess, prior colonoscopies done. Last colonoscopy was in 2018 performed by me. GENITOURINARY: Denies dysuria, frequency, hematuria and nocturia. ENDOCRINE: Denies polydipsia, polyphagia, polyuria, heat or cold intolerance. INFECTIOUS: Denies any recent upper respiratory tract infection, UTI, need for use of antibiotics. NUTRITION: Reports poor appetite. PHYSICAL EXAMINATION: VITAL SIGNS: Please see below. GENERAL APPEARANCE: Patient appearing uncomfortable secondary to discomfort on the right groin area. Awake, alert, oriented. HEENT: Normocephalic, atraumatic. [place] palpebral conjunctivae. Anicteric sclerae. Lips dry. CHEST: No chest wall abnormalities. Normal respiratory motion/effort. NECK: Supple. No thyromegaly. No lymphadenopathies. LUNGS: Lung sounds are clear to auscultation bilaterally. No wheezing appr eciated. HEART: No chest wall abnormalities. Heart rate and rhythm are regular with no murmurs. ABDOMEN: Patient has around abdomen, obese appearing soft. There is some mild prominence and tympany mostly in the lower quadrant area. There is mild tenderness in the right lower abdomen. He is previous drain site is healed without any erythema or drainage. He has a pronounced bulge with erythema on the right groin which is nonreducible and tender on manipulation. SKIN: Warm and dry. EXTREMITIES: Extremities have no deformities. No edema identified. NEUROLOGICAL: Awake, alert, oriented. ANCILLARIES: . LABORATORY DATA: Please see below. MICROBIOLOGY: Please see below. IMAGING: Intraperitoneal space:There are 2 abscesses. One interloop abscess noted within the sigmoid mesocolon:(Series 401 images 102 through 110) measuring 2 x 2.5 x 1.9 cm.. This communicates with a small tubular channel of air and surrounding soft tissue thickening that extends superiorly along the right lateral border of the sigmoid colon . Second abscess is noted at the base of the cecum measuring approximately 4.4 x 3.3 x 3.7 cm. This is in the same location as a percutaneously placed drain was positioned on previous CT scan dated 02/10/2019. . . Vasculature: Normal. No abdominal aortic aneurysm. Lymph nodes: Normal. No enlarged lymph nodes. Bladder: Unremarkable as visualized. Reproductive: Small hydroceles are seen bilaterally. The prostate measures 3.8 x 3.8 x 3.7 cm. Calcifications noted within the prostate. Bones/joints: No acute fracture. No dislocation. Soft tissues: The inflammation surrounding the abscess in the right lower quadrant extends along the margins of the right inguinal canal with fluid and air dissecting along the spermatic cord and into the right hemiscrotum. Hazy density reflecting induration surrounds the right inguinal canal extending into the right hemiscrotum. There are no bowel loops noted within the right inguinal hernia. There is a small left inguinal hernia containing fat. IMPRESSION: 1. Diverticulitis with 2 pelvic abscesses. One interloop abscess/contained perforation located in the sigmoid mesocolon and a second abscess in the right lower quadrant located at the base of the cecum at the location of the previous drain placement. 2. Inflammatory changes including subcutaneous air and fluid that may reflect inferior extension of the abscess located in the right lower quadrant dissect along the right inguinal canal and spermatic cord into the right hemiscrotum. There is induration of the soft tissues overlying the right inguinal canal and right hemiscrotum. Necrotizing fasciitis is a concern 3. Small hydroceles bilaterally. 4. Liver cyst. IMPRESSION AND PLAN: Recurrent, complicated diverticulitis with abscess Presentation of strangulated hernia but on CT scan there is air tracking down and may be extension of the abscess from the right abdominal wall from the diverticular abscess So this patient has a known history of complicated diverticular abscess. The last significant episode was back in 02/01/2019 where he had a large right-sided abdominal wall abscess from perforated diverticulitis which was drained percutaneously with improvement of his fever and abdominal pain up until 2 weeks ago where he had some recurrence of the abdominal pain. From prior imaging he had an asymptomatic right groin hernia which as of the last imaging was mainly containing fat tissue. His presentation is that evan to a strangulated hernia with a nonreducible bulge on the right groin with erythema of the skin. On fu rther imaging the CT scan shows recurrence of the right-sided abdominal wall abscess, may be a new right peridiverticular abscess and left subacute inflammation on the right groin hernia which may be an extension of the right- sided abdominal wall abscess. He has a low-grade fever and white cell count of 20,000. Given this complicated picture, I think it would be prudent to bring him to the operating room. I told him our initial plan will be to place a laparoscope to verify if possible whether this is a singular abscess which may needed to be drained from the abdomen or from the groin or dizziness 2 processes which may include a strangulation of whatever is herniating. It doesn't seem to be bowel in the inguinal canal only inflamed tissue probably omentum. The next step is with regards to what to do with the diverticulitis of the sigmoid colon. If it is what I believed to be persistent process from the end of January then the abscess or fistulous tract would be well formed at this point and it may just be prudent to drain the abscess and see if he improves then proceed with a single step colon resection and avoid a temporary colostomy. If there is a new diverticulitis episode with unsealed hole in the sigmoid colon then this would not be feasible and he may need colon resection and a temporary colostomy. Patient has been appraised of this possibility. He'll be given a dose of Zosyn 3.3 cm times IV. He looks quite dry and I will continue him on 150 ML's an hour of IV fluids. Plans are being made to bring him to the operating room this is being dictated. Further plans after the procedure will be elucidated. Vital Signs Vital Signs Date Time Temp Pulse Resp B/P (MAP) Pulse Ox O2 Delivery O2 Flow Rate FiO2 03/23/19 19:49 20 03/23/19 19:44 100.7 72 139/76 (97) 96 Room Air Laboratory Data Labs 24H Laboratory Tests 2 03/23/19 19:42: Lactic Acid Level 1.0 03/23/19 19:43: Immature Granulocyte % (Auto) 0.6, White Blood Count 19.9H, Red Blood Count 5.32, Hemoglobin 15.9, Hematocrit 46.6, Mean Corpuscular Volume 87.6, Mean Corpuscular Hemoglobin 29.9, Mean Corpuscular Hemoglobin Concent 34.1, Red Cell Distribution Width 13.8, Platelet Count 294, Neutrophils (%) (Auto) 83.4H, Lymphocytes (%) (Auto) 9.1L, Monocytes (%) (Auto) 6.2H, Eosinophils (%) (Auto) 0.4, Basophils (%) (Auto) 0.3, Neutrophils # (Auto) 16.6H, Lymphocytes # (Auto) 1.8, Monocytes # (Auto) 1.2H, Eosinophils # (Auto) 0.1, Basophils # (Auto) 0.1, Nucleated Red Blood Cells % (auto) 0.0, Prothrombin Time 15.4H, Prothromb Time International Ratio 1.25, Activated Partial Thromboplast Time 37.4, Anion Gap 14, Glomerular Filtration Rate > 60.0, Calcium Level 9.0, Aspartate Amino Transf (AST/SGOT) 21, Alanine Aminotransferase (ALT/SGPT) 27, Alkaline Phosphatase 78, Total Bilirubin 0.7, Direct Bilirubin 0.2, Total Protein 7.8, Albumin 3.4, Albumin/Globulin Ratio 0.77L CBC/BMP Laboratory Tests 03/23/19 19:43 Red Blood Count 5.32, Mean Corpuscular Volume 87.6, Mean Corpuscular Hemoglobin 29.9, Mean Corpuscular Hemoglobin Concent 34.1, Red Cell Distribution Width 13.8, Neutrophils (%) (Auto) 83.4 H, Lymphocytes (%) (Auto) 9.1 L, Monocytes (%) (Auto) 6.2 H, Eosinophils (%) (Auto) 0.4, Basophils (%) (Auto) 0.3, Neutrophils # (Auto) 16.6 H, Lymphocytes # (Auto) 1.8, Monocytes # (Auto) 1.2 H, Eosinophils # (Auto) 0.1, Basophils # (Auto) 0.1 Home Medications Scheduled L.acidoph/L.bulg/B.bif/S.therm (Bacid Caplet) 1 Each Tablet, 1 TAB PO DAILY, (Reported) Metronidazole (Metronidazole) 500 Mg Tablet, 500 MG PO TID, (Reported) STARTED ON 03/21/19: 10 DAY SUPPLY Allergies Coded Allergies: No Known Allergies (Unverified , 02/01/19) A-FIB/CHADSVASC A-FIB History Current/History of A-Fib/PAF?: No Current PO Anticoag Therapy: No BEBA GORDILLO MD Mar 23, 2019 21:45
[2019-03-23] MEDS ORDERED: fentaNYL 250 MCG/5 ML INJECTION (J3010) As Ordered ONE (21:49)
[2019-03-23] MEDS ORDERED: MIDAZOLAM INJ 2 MG/2 ML VIAL (J2250) As Ordered ONE (21:50)
[2019-03-23] MEDS ORDERED: PROPOFOL 200 MG/20 ML VIAL As Ordered ONE (21:53)
[2019-03-23] MEDS ORDERED: ROCURONIUM BROMIDE 50 MG/5 ML VIAL As Ordered ONE ×2 (21:53→22:54)
[2019-03-23] MEDS ORDERED: LIDOCAINE 2% INJ 100 MG/5 ML SDV (FOR ANES.) As Ordered ONE (21:53)
[2019-03-23] MEDS: LR 1,000 ML IV SCH (21:54)
[2019-03-23] MEDS ORDERED: dexameTHASONE 4 MG/ML 1ML VIAL (J1100) As Ordered ONE (21:55)
[2019-03-23] MEDS ORDERED: METR-265 PO (22:01)
[2019-03-23] MEDS ORDERED: ACETAMINOPHEN 1000MG 100ML IV BTL (OFIRMEV) (J0131 PER 10MG) As Ordered ONE (22:33)
[2019-03-23] MEDS ORDERED: SUGAMMADEX SODIUM 500 MG/5 ML VIAL (BRIDION) As Ordered ONE (22:43)
[2019-03-23] MEDS ORDERED: KETOROLAC 60 MG/2 ML VIAL (J1885) As Ordered ONE (22:44)
[2019-03-23] MEDS ORDERED: ONDANSETRON 4MG/2ML VIAL (J2405) As Ordered ONE (22:44)
[2019-03-23] MEDS ORDERED: PHENYLephrine HCL 500 MCG/5 ML (100MCG/ML) SYRINGE (J2370) As Ordered ONE (22:48)
[2019-03-24] VITALS (11 sets, daily range): BP systolic 143–162; BP diastolic 63–98
[2019-03-24] MEDS ORDERED: ePHEDrine SULFATE 25 MG/5 ML(5MG/ML) SYRINGE As Ordered ONE (00:20)
[2019-03-24] MEDS ORDERED: LR 1,000 ML IV SCH ×2 (00:47→01:15)
[2019-03-24] MEDS ORDERED: ACETAMINOPHEN TAB 650MG DOSE (2X325MG) PO PRN (01:00)
[2019-03-24] MEDS ORDERED: MORPHINE 4 MG/ML 1ML VIAL/SYRINGE (J2270) IV PRN (01:00)
[2019-03-24] MEDS ORDERED: PERCOCET 5MG/325MG TAB PO PRN ×3 (01:00→01:15)
[2019-03-24] MEDS ORDERED: ONDANSETRON 4MG/2ML VIAL (J2405) IV PRN ×2 (01:00→01:15)
[2019-03-24] MEDS ORDERED: HYDROMORPHONE HCL 0.5 MG/ 0.5 ML SYRINGE (J1170 PER 1) IV PRN (01:15)
[2019-03-24] MEDS ORDERED: fentaNYL 100 MCG/2 ML INJECTION (J3010) IV PRN (01:15)
[2019-03-24] MEDS: LR 1,000 ML IV SCH ×3 (01:45→22:00)
[2019-03-24] MEDS: SENOKOT S TAB PO SCH ×4 (02:37→21:52)
[2019-03-24] MEDS: PIPERACILLIN/TAZOBACTAM SOD 3.375 GM in D5W MINI-BAG PLUS 50 ML IV SCH ×4 (04:02→21:50)
--- NOTE | 2019-03-24 06:02 | ROOPDOC ---
[facility] Report Of Operation Report of Operation DATE OF PROCEDURE: 03/23/19 PREPROCEDURE DIAGNOSES: Strangulated right inguinal hernia, intra-abdominal abscess, possible diverticular abscess with extension to the right groin hernia. POSTPROCEDURE DIAGNOSES: Strangulated right inguinal hernia containing ischemic omental tissue with abscess, diverticulitis acute over chronic, no definite abscess found, sclerotic appendix PROCEDURE: Diagnostic laparoscopy, laparoscopic reduction of incarcerated omental tissue, laparoscopic appendectomy, Right groin exploration, repair of strangulated inguinal hernia (primary repair, no mesh). SURGEON: Branden Hansen MD CREDIT CARD CONTROL CLERK: Keegan Garcia (MS III) ANESTHESIA: Gen. anesthesia. ESTIMATED BLOOD LOSS: Approximately 50 mL. COMPLICATIONS: None. REMARKS: 54-year-old gentleman with history of complicated diverticulitis with abscess seen last episode was just about a month ago for which a right sided abdominal drain was placed subsequently removed after his symptoms resolved. He presented to the emergency room with complaints of 2 week history of ongoing right-sided abdominal pain and discomfort and 2 day history of discomfort, pain and swelling involving the right groin. PROCEDURE NOTE: Skin overlying the right region. Erythema, hardened soft tissue that is incarcerated in the inguinal canal, not reducible and tender on palpation. Diagnostic laparoscopy . The sigmoid colon is none noted adhered to slightly to the right of the midline on the anterior abdominal wall with thickening localized to about the midportion of the sigmoid colon which to me appears rather chronic. The bowel overlying the area is hardened but rest of the sigmoid is relatively healthy and free of inflammation. I opened up the peritoneum and preperitoneal area where the colon is adhered to the abdominal wall insert before evidence of hardened soft tissue consistent with previous abscess, I did not find any abscess over the area. the appendix is adhered, sclerosed and thickened throughout its course and adhered to the lateral portion of the hernia defect. This was subsequently removed. Groin exploration was then performed and the remnant of the omental tissue that was incarcerated was removed and patient was found to have serous sanguinous fluid as well as abscess in the inguinal canal going into the scrotal sac. DESCRIPTION OF PROCEDURE: Patient received a dose of Zosyn 3.375 g IV prior to our incision. He was brought to the operating room, placed supine on the table. Compression boots and teds stockings were placed on both lower extremities for DVT prophylaxis. Gen. endotracheal anesthesia started. A Peñaloza catheter was placed for urine output monitoring. His abdomen, bilateral groin areas down to the thigh was then prepped and draped in usual sterile fashion.We paused for a surgical timeout using both pre-incision safety checklist to verify correct patient, procedure site and additional clinical information prior to beginning the procedure. Given his presentation as well as findings on CT he decides to perform a diagnostic laparoscopy. The area above the umbilicus was infiltrated with local anesthesia. A small incision created. A Veress needle then inserted in a controlled fashion. Proper placement confirmed with saline drop technique. CO2 insufflation and started pressure of 15 mmHg. Using the same incision a 5 mm Visiport was placed under direct vision of laparoscope. Patient was then placed on a Trendelenburg position, his right side tilted upwards to retract abdominal structures away from the right groin area. The procedure was performed with 5 mm 30 laparoscope. 25 mm working ports were placed under direct vision at the left lower quadrant area and also at the right lower quadrant area. On diagnostic laparoscopy, there is some evidence of acute inflammation over the right side of the abdominal wall where there was initially some epiploic fat tissue on the bowels the right side it appears moderately inflamed. This was bluntly dissected away from the abdominal wall. The sigmoid colon course was located. The distal sigmoid colon in the pelvis is relatively healthy and free of inflammation. The midportion of the sigmoid colon is found adhered to the abdominal wall slightly to the right of the medial umbilical ligament. This portion of the sigmoid colon appears thick and broadly adhered to the peritoneum above it. There is some bogginess of the he abdominal wall over this area where I suspect must be some abscess. This was medial to the internal inguinal ring opening where there were a lot of hardened and chronically fibrosed tissues going through the internal opening. I worked on pulling back in dissecting at this tissues using a Harmonic Scalpel and this eventually able to reduce some mildly thickened but otherwise healthy omental tissue. Part of this broke free from the tissues within the inguinal canal and despite the inguinal region feeling softer with reduction of this tissues, there is still remains some tissues bulging within the inguinal canal. I further work on this area and located the appendix thickened and also adhered to the lateral inferior wall close to the hernia defect. I worked on removing this and followed this to the base of the appendix at the cecum. The whole course of the appendix appears thick and chronically fibrosed with the tip of it slightly opened up with the dissection thus I decided to remove the appendix. The mesoappendix was dissected and divided with Harmonic scalpel. The appendix was ligated with 2 Endoloop PDS at the base and the appendix was divided with a Harmonic scalpel. A 10 mm bag was then exchanged through the right lower quadrant port and the appendix was extracted. On resuming laparoscopy I opened up the peritoneum where the sigmoid colon was adherent and got into this pocket where there were some thickening of the soft tissue at the preperitoneal space this was further opened up and dev eloped and I could visualize the pubis. Following this course I could not find any obvious abscess collection intra-abdominally area did as this is where the colon is adhered and left a 19 round Alberto drain coursing through the left lower quadrant port to the pelvis and into this cavity in the preperitoneal space. I then discontinued laparoscopy and the abdomen was deflated. He was then repositioned and we proceeded with the groin exploration. At this point the erythema has improved. The degree of bulging is likewise improve with therapy remains bulging of soft tissue in the inguinal canal. This skin overlying this area was infiltrated with local anesthesia. An oblique skin incision was created along the projected course of the inguinal canal and deepened through the subcutaneous tissue. A crossing vein in the soft tissue was ligated and divided. The anterior fascia and opening the inguinal canal was exposed and developed. This was opened up along the course of the inguinal canal from the external opening to the internal opening under direct visualization. The tissue surrounding the area appears acutely thickened and inflamed. There was some serous fluid within the canal. As mentioned there remains some bulging of soft tissue within the canal. The structures coursing through the inguinal canal was bluntly dissected off the wall and floor of the inguinal canal and a [place] drain was placed. I opened up the anvil opening cremasteric muscles and sac and dissected the vas deferens and testicular structures away from this. I continued pulling the incarcerated omentum and eventually was able to dislodge the whole incarcerated tissue from the course of the inguinal canal and out of the scrotal sac with release of serosanguineous fluid as well as purulent fluid that is inside the scrotal sac. On doing this also the testicle was pulled out of the scrotum. The remaining attachments soft tissue was developed away from the testicle and this was replaced back in the scrotum. The course of the vas deferens and testicular vessels were followed as it exits the scrotum and its course along the inguinal canal and thus it inserts into the internal opening. The inguinal canal was then irrigated. The hernia defect was then closed by placing 0 silk sutures opposing the conjoined tendon to the Tay's ligament medially and the inguinal ligament as it proceeds laterally closing the widened internal opening. After this the anterior fascia was then closed with 2-0 Vicryl in a running fashion and the external opening re-created. The subcutaneous veins tissue was also irrigated 3-0 Vicryl sutures were placed along the Donn's fascia to overlying the soft tissue and the skin was then closed with gloria. The laparoscopic incisions were then closed using 4-0 Monocryl in subcutaneous fashion. The 19 round Laberto drain was secured to skin with 2-0 silk's. Patient remained hemodynamically stable throughout the procedure. The Peñaloza catheter was capped. It was promptly awakened and extubated and brought to recovery in stable condition. All counts of sponges and instruments were verified correct. BRANDEN HANSEN MD Mar 24, 2019 06:02
[2019-03-24 06:35] LABS: BASO % 0.1 % (0.0-1.0); HEMATOCRIT 43.4 % (42.0-52.0); HEMOGLOBIN 14.7 g/dl (13.5-17.5); LYMPH # 0.8 10^3/uL (1.5-4.5); LYMPH % 4.6 % (24.0-44.0); MEAN CORPUSCULAR HEMOGLOBIN 30.6 pg (27.0-33.0); MEAN CORPUSCULAR HGB CONC 33.9 g/dl (32.0-36.5); MEAN CORPUSCULAR VOLUME 90.2 fl (80.0-96.0); MONO # 0.7 10^3/uL (0.0-0.8); MONO % 3.8 % (0.0-5.0); NEUTROPHILS # 15.7 10^3/uL (1.8-7.7); NEUTROPHILS % 90.9 % (36.0-66.0); PLATELET COUNT, AUTOMATED 265 10^3/uL (150-450); RED BLOOD COUNT 4.81 10^6/uL (4.30-6.10); WHITE BLOOD COUNT 17.3 10^3/uL (4.0-10.0)
[2019-03-24 06:47] LABS: BLOOD UREA NITROGEN 14 MG/DL (7-18); CALCIUM LEVEL 8.5 MG/DL (8.5-10.1); CARBON DIOXIDE LEVEL 26 MEQ/L (21-32); CHLORIDE LEVEL 103 MEQ/L (98-107); CREATININE FOR GFR 0.85 MG/DL (0.70-1.30); GLOMERULAR FILTRATION RATE > 60.0 (>56); GLUCOSE, FASTING 149 MG/DL (70-100); POTASSIUM SERUM 3.9 MEQ/L (3.5-5.1); SODIUM LEVEL 138 MEQ/L (136-145)
[2019-03-24] MEDS: ENOXAPARIN 40 MG/0.4 ML SYRINGE (J1650) SC SCH (08:51)
[2019-03-24] MEDS: PANTOPRAZOLE 40MG INJ (PROTONIX) (C9113) IV SCH (09:41)
[2019-03-24] MEDS: KETOROLAC 30 MG/ML VIAL (J1885) IV PRN ×2 (11:30→21:51)
[2019-03-24] MEDS ORDERED: LIDOCAINE 1% MDV 20ML VIAL As Ordered ONE (14:33)
[2019-03-25 02:00] VITALS: BP 150/88
[2019-03-25 06:00] VITALS: BP 162/82
[2019-03-25] MEDS: PIPERACILLIN/TAZOBACTAM SOD 3.375 GM in D5W MINI-BAG PLUS 50 ML IV SCH ×4 (06:08→22:11)
[2019-03-25 06:18] LABS: BASO % 0.2 % (0.0-1.0); EOS # 0.1 10^3/uL (0.0-0.50); EOS % 0.5 % (0.0-3.0); LYMPH # 2.4 10^3/uL (1.5-4.5); LYMPH % 18.2 % (24.0-44.0); MEAN CORPUSCULAR HEMOGLOBIN 30.5 pg (27.0-33.0); MEAN CORPUSCULAR HGB CONC 33.9 g/dl (32.0-36.5); MONO # 0.8 10^3/uL (0.0-0.8); MONO % 5.9 % (0.0-5.0); NEUTROPHILS # 9.7 10^3/uL (1.8-7.7); NEUTROPHILS % 74.7 % (36.0-66.0); PLATELET COUNT, AUTOMATED 246 10^3/uL (150-450)
[2019-03-25] MEDS: LR 1,000 ML IV SCH (06:20)
[2019-03-25 06:44] LABS: BLOOD UREA NITROGEN 15 MG/DL (7-18); CALCIUM LEVEL 8.3 MG/DL (8.5-10.1); CARBON DIOXIDE LEVEL 26 MEQ/L (21-32); CHLORIDE LEVEL 107 MEQ/L (98-107); CREATININE FOR GFR 0.77 MG/DL (0.70-1.30); GLOMERULAR FILTRATION RATE > 60.0 (>56); GLUCOSE, FASTING 105 MG/DL (70-100); POTASSIUM SERUM 3.5 MEQ/L (3.5-5.1); SODIUM LEVEL 139 MEQ/L (136-145)
[2019-03-25 07:03] LABS: HEMOGLOBIN 12.2 g/dl (13.5-17.5)
--- NOTE | 2019-03-25 08:27 | IPN ---
DATE: 03/25/2019 The patient is status-post diagnostic laparoscopy with right inguinal hernia repair. The patient has had a drain placed in the preperitoneal space on the right-hand side but it was an abscess seen in this pigtail catheter was placed yesterday. This initially drains purulent fluid and since that time as and drained a little bit of bloody fluid. He has been afebrile. His drainage catheter above the Tomás-Sheikh drain yesterday was 150 and total amount of drainage in the edge and the pigtail is not recorded. He has had two bowel movements. Urine output has been very good. His white count is dropping down to 13,000 and otherwise she has no other complaints still some tenderness pain in the groin area but this is better than it was yesterday. On his physical exam. Lungs: Clear to auscultation anteriorly. Heart is regular. Abdomen: Soft, nondistended. Morbidly obese. Dressings are clean, dry with without erythema, drainage or discharge. He has significant scrotal edema but without cellulitis or inflammation. IMPRESSION AND PLAN: The patient has had two issues one of which was some omentum in the right lower quadrant was covering probably a preperitoneal abscess that was drained yesterday he had a right inguinal hernia that was incarcerated probably secondary to this inflammatory process in the right lower quadrant and is doing well from infectious process will keep the drainage catheter in place. Unfortunately because of urologic issues. We will maintain his Peñaloza catheter today and plan on discontinuing it tomorrow. We will have him continue increasing his activity increase his diet and Hep-Lock his IV.
[2019-03-25] MEDS: SENOKOT S TAB PO SCH ×2 (08:28→20:22)
[2019-03-25] MEDS: PANTOPRAZOLE 40MG INJ (PROTONIX) (C9113) IV SCH (09:05)
[2019-03-25] MEDS: ENOXAPARIN 40 MG/0.4 ML SYRINGE (J1650) SC SCH (09:06)
[2019-03-25 10:00] VITALS: BP 169/82
[2019-03-25] MEDS: KETOROLAC 30 MG/ML VIAL (J1885) IV PRN ×2 (11:50→23:13)
[2019-03-25 14:00] VITALS: BP 190/91
--- NOTE | 2019-03-25 14:43 | REP ---
CT-guided drain placement The procedure is performed by RAMÓN Couch, under the personal supervision of Dr. Carrion. The patient has a history of a intraperitoneal abscess in the right lower quadrant located at the base of the cecum on the CT dated 03/23/2098. The risks and benefits of the procedure were explained to the patient and informed consent was obtained both orally and written. Directly prior to the start of the procedure, a formal timeout was done in the exam room. The right lower quadrant abscess was localized using CT guidance. Skin was prepped and draped in the usual sterile fashion. 14 ml of 1% lidocaine was used as a local anesthetic. Using CT guidance and trocar technique an 8-[place] pigtail catheter was inserted and advanced into the abscess. Approximately 15 ml of blood tinged pus was removed and sent to the lab for further analysis. The catheter was connected to a gravity drainage bag. CT images obtained directly after the procedure show the pigtail catheter to be in good placement. After the appropriate amount of monitored convalescence the patient was discharged back to the unit. Reviewed by RAMÓN Lantigua 03/25/2019 01:09 P Electronically Signed by Davey Carrion MD 03/25/2019 02:34 P
[2019-03-25 18:00] VITALS: BP 188/88
[2019-03-25] MEDS ORDERED: LISINOPRIL 5 MG TAB PO SCH (21:00)
[2019-03-25 22:00] VITALS: BP 188/106
[2019-03-26 02:00] VITALS: BP 177/111
[2019-03-26] MEDS: PIPERACILLIN/TAZOBACTAM SOD 3.375 GM in D5W MINI-BAG PLUS 50 ML IV SCH ×2 (04:17→09:44)
[2019-03-26 05:45] VITALS: BP 170/98
[2019-03-26 05:54] LABS: BASO # 0.1 10^3/uL (0.0-0.2); BASO % 0.5 % (0.0-1.0); EOS # 0.2 10^3/uL (0.0-0.50); EOS % 1.4 % (0.0-3.0); HEMATOCRIT 37.5 % (42.0-52.0); HEMOGLOBIN 12.7 g/dl (13.5-17.5); LYMPH # 1.9 10^3/uL (1.5-4.5); LYMPH % 14.5 % (24.0-44.0); MEAN CORPUSCULAR HEMOGLOBIN 30.2 pg (27.0-33.0); MEAN CORPUSCULAR HGB CONC 33.9 g/dl (32.0-36.5); MEAN CORPUSCULAR VOLUME 89.3 fl (80.0-96.0); MONO # 0.9 10^3/uL (0.0-0.8); MONO % 6.7 % (0.0-5.0); NEUTROPHILS # 10.1 10^3/uL (1.8-7.7); NEUTROPHILS % 76.3 % (36.0-66.0); PLATELET COUNT, AUTOMATED 275 10^3/uL (150-450); WHITE BLOOD COUNT 13.2 10^3/uL (4.0-10.0)
[2019-03-26 06:00] VITALS: BP 170/98
[2019-03-26 06:22] LABS: BLOOD UREA NITROGEN 11 MG/DL (7-18); CALCIUM LEVEL 8.2 MG/DL (8.5-10.1); CARBON DIOXIDE LEVEL 23 MEQ/L (21-32); CHLORIDE LEVEL 107 MEQ/L (98-107); CREATININE FOR GFR 0.76 MG/DL (0.70-1.30); GLOMERULAR FILTRATION RATE > 60.0 (>56); GLUCOSE, FASTING 111 MG/DL (70-100); POTASSIUM SERUM 3.5 MEQ/L (3.5-5.1); SODIUM LEVEL 138 MEQ/L (136-145)
[2019-03-26] MEDS ORDERED: PERCOCET PO (08:46)
[2019-03-26] MEDS ORDERED: CIPR500T19 PO (08:46)
[2019-03-26] MEDS ORDERED: METOPROLOL TART 25 MG TABLET PO SCH (09:00)
[2019-03-26] MEDS ORDERED: LISINOPRIL 5 MG TAB PO SCH (09:00)
[2019-03-26] MEDS: SENOKOT S TAB PO SCH (09:00)
[2019-03-26] MEDS: PANTOPRAZOLE 40MG INJ (PROTONIX) (C9113) IV SCH (09:42)
[2019-03-26 09:43] VITALS: BP 172/84
[2019-03-26] MEDS: ENOXAPARIN 40 MG/0.4 ML SYRINGE (J1650) SC SCH (09:43)
[2019-03-26] MEDS ORDERED: CIPR-249 PO (11:00)
== END 2019-03-26 11:30 | disposition home or self-care (01) | DRG 225 ==
LOC: M ED 18:16 → UNDOADMIN 21:27 → M ED INP 21:27 → M MSPAV 03-24 01:40 → M ED INP 03-24 01:40
PROVIDERS: ADMIT Surgery; ATTEND Surgery
PROC: 0DTJ4ZZ Resection of Appendix, Percutaneous Endoscopic Approach (ICD-10-PCS; 2019-03-23)
PROC: 0YQ54ZZ Repair Right Inguinal Region, Percutaneous Endoscopic Approach (ICD-10-PCS; principal; 2019-03-23 21:29)
DX: K40.30 Unilateral inguinal hernia, with obstruction, without gangrene, not specified as recurrent (principal); K65.1 Peritoneal abscess; K57.20 Diverticulitis of large intestine with perforation and abscess without bleeding; K76.89 Other specified diseases of liver; G47.30 Sleep apnea, unspecified; N43.3 Hydrocele, unspecified

== ENCOUNTER → 2019-05-12 | Outpatient (CLI) | payer BC ==
[~2019-05-12] MED LIST changes: +CIPR-249 PO; +CIPR500T19 PO; +PERCOCET PO
--- NOTE | 2019-05-13 03:37 | REP ---
Clinical: Groin pain. Inguinal hernia. Technique: Real time iqbal scale and color evaluation using linear high frequency and curved array transducers. Findings: There is no evidence for right or left inguinal hernia. There is a complex multi septated collection in the right groin measuring 10.1 x 5.3 x 5.6 cm which may reflect hematoma/seroma related to prior right inguinal hernia repair. Incidental note is made of moderate simple right hydrocele. Impression: 1. Complex multi septated collection in the right inguinal canal may reflect hematoma versus seroma. 2. No definite hernia identified bilaterally. 3. Moderate simple right hydrocele. Electronically Signed by Narinder Hopkins MD 05/13/2019 03:29 A
== END ==
LOC: M RAD 11:33
PROVIDERS: ATTEND Surgery
DX: K57.20 Diverticulitis of large intestine with perforation and abscess without bleeding (principal); K63.0 Abscess of intestine

== ENCOUNTER → 2020-04-20 | Outpatient (REF) | payer BC ==
[2020-04-20 11:25] LABS: ALBUMIN 3.9 GM/DL (3.2-5.2); ALT/SGPT 51 U/L (12-78); BILIRUBIN,TOTAL 0.4 MG/DL (0.2-1.0); BLOOD UREA NITROGEN 19 MG/DL (7-18); CALCIUM LEVEL 9.5 MG/DL (8.5-10.1); CARBON DIOXIDE LEVEL 32 MEQ/L (21-32); CHLORIDE LEVEL 101 MEQ/L (98-107); CHOLESTEROL LEVEL 179 MG/DL (<200); CHOLESTEROL RISK RATIO 5.774 (<5); CREATININE FOR GFR 0.91 MG/DL (0.70-1.30); GLOMERULAR FILTRATION RATE > 60.0 (>56); GLUCOSE, FASTING 107 MG/DL (70-100); HDL CHOLESTEROL 31 MG/DL (>40); LDL CHOLESTEROL 119 MG/DL (<100); NON-HDL-C 148 MG/DL; POTASSIUM SERUM 4.3 MEQ/L (3.5-5.1); SODIUM LEVEL 139 MEQ/L (136-145); TOTAL PROTEIN 7.5 GM/DL (6.4-8.2); TRIGLYCERIDES LEVEL 147 MG/DL (<150)
== END ==
LOC: M SFHCPLAZ 08:50
PROVIDERS: ATTEND Nurse Practitioner Adult Health
DX: Z00.00 Encounter for general adult medical examination without abnormal findings (principal); Z13.1 Encounter for screening for diabetes mellitus; Z13.220 Encounter for screening for lipoid disorders; Z13.29 Encounter for screening for other suspected endocrine disorder; Z12.5 Encounter for screening for malignant neoplasm of prostate
CPT/HCPCS: 36415; 80053; 80061; 83036; 84443; G0103

== ENCOUNTER → 2020-11-12 | Outpatient (REF) | payer BC ==
[2020-11-12 12:22] LABS: BLOOD UREA NITROGEN 14 MG/DL (7-18); CARBON DIOXIDE LEVEL 29 MEQ/L (21-32); CHLORIDE LEVEL 102 MEQ/L (98-107); CREATININE FOR GFR 1.02 MG/DL (0.70-1.30); GLOMERULAR FILTRATION RATE > 60.0 (>56); GLUCOSE, FASTING 128 MG/DL (70-100); POTASSIUM SERUM 3.8 MEQ/L (3.5-5.1); SODIUM LEVEL 138 MEQ/L (136-145)
== END ==
LOC: M SFHCPLAZ 09:05
PROVIDERS: ATTEND Nurse Practitioner Adult Health
DX: I10 Essential (primary) hypertension (principal); E74.39 Other disorders of intestinal carbohydrate absorption

== ENCOUNTER 2021-06-14 13:04 | Inpatient (IN) | payer BC ==
[~2021-06-14] VITALS: Ht 175.3 cm; Wt 107.4 kg
[2021-06-14] MEDS ORDERED: LISI10TA22 PO (13:14)
[2021-06-14] MEDS ORDERED: CHLO125TA PO (13:14)
[2021-06-14 14:42] LABS: BASO % 0.2 % (0.0-1.0); EOS % 0.2 % (0.0-3.0); HEMATOCRIT 42.8 % (42.0-52.0); HEMOGLOBIN 15.2 g/dl (13.5-17.5); LYMPH # 1.1 10^3/uL (1.5-5.0); MEAN CORPUSCULAR HEMOGLOBIN 31.3 pg (27.0-33.0); MEAN CORPUSCULAR HGB CONC 35.5 g/dl (32.0-36.5); MEAN CORPUSCULAR VOLUME 88.1 fl (80.0-96.0); MONO # 1.5 10^3/uL (0.0-0.8); MONO % 7.9 % (2.0-8.0); NEUTROPHILS # 15.4 10^3/uL (1.5-8.5); NEUTROPHILS % 84.1 % (36.0-66.0); PLATELET COUNT, AUTOMATED 180 10^3/uL (150-450); RED BLOOD COUNT 4.86 10^6/uL (4.30-6.10)
[2021-06-14 14:43] LABS: WHITE BLOOD COUNT 18.4 10^3/uL (4.0-10.0)
[2021-06-14 15:12] LABS: ALBUMIN 2.7 GM/DL (3.2-5.2); ALT/SGPT 71 U/L (12-78); BILIRUBIN,DIRECT 0.4 MG/DL (0.0-0.2); BILIRUBIN,TOTAL 0.9 MG/DL (0.2-1.0); LIPASE 454 U/L (73-393); TOTAL PROTEIN 6.5 GM/DL (6.4-8.2)
[2021-06-14] MEDS ORDERED: PIPERACILLIN/TAZOBACTAM SOD 4.5 GM in D5W MINI-BAG PLUS 50 ML IV ONE (16:55)
[2021-06-14] MEDS ORDERED: NS IV ONE (16:55)
[2021-06-14] MEDS ORDERED: fentaNYL 100 MCG/2 ML INJECTION IV ONE (16:55)
[2021-06-14] MEDS ORDERED: ISOVUE-370 76% 100ML VIAL As Ordered ONE (16:56)
[2021-06-14 17:13] LABS: CPK CREATINE PHOSPHOKINASE 76 U/L (39-308); MB/CK RELATIVE INDEX 1.32 (< OR =4); TROPONIN I < 0.02 NG/ML (< 0.10)
[2021-06-14 17:57] LABS: RSV AMPLIFICATION NEGATIVE (NEGATIVE)
[2021-06-14] MEDS ORDERED: ACET-683 PO (18:56)
[2021-06-14] MEDS ORDERED: CIPR500T39 PO (18:56)
[2021-06-14] MEDS ORDERED: HOME MED LIST COMPLETE! XX SCH (19:00)
[2021-06-14] MEDS ORDERED: D5W/0.45% SODIUM CHLORIDE 1,000 ML IV SCH (20:30)
[2021-06-14 21:46] LABS: BLOOD UREA NITROGEN 31 MG/DL (7-18); CALCIUM LEVEL 7.8 MG/DL (8.5-10.1); CARBON DIOXIDE LEVEL 27 MEQ/L (21-32); CHLORIDE LEVEL 93 MEQ/L (98-107); CREATININE FOR GFR 1.26 MG/DL (0.70-1.30); GLOMERULAR FILTRATION RATE > 60.0 (>56); GLUCOSE, FASTING 173 MG/DL (70-100); POTASSIUM SERUM 3.2 MEQ/L (3.5-5.1); SODIUM LEVEL 130 MEQ/L (136-145)
[2021-06-15] VITALS (7 sets, daily range): BP systolic 96–121; BP diastolic 50–70
[2021-06-15] MEDS: PIPERACILLIN/TAZOBACTAM SOD 3.375 GM in D5W MINI-BAG PLUS 50 ML IV SCH ×4 (01:21→18:23)
[2021-06-15] MEDS: ACETAMINOPHEN TAB 650MG DOSE (2X325MG) PO PRN (01:22)
[2021-06-15] MEDS: MORPHINE 2 MG/ML 1ML VIAL (J2270) IV PRN ×4 (05:43→21:25)
[2021-06-15 06:08] LABS: BASO % 0.2 % (0.0-1.0); EOS # 0.1 10^3/uL (0.0-0.5); EOS % 0.3 % (0.0-3.0); HEMATOCRIT 39.8 % (42.0-52.0); HEMOGLOBIN 14.2 g/dl (13.5-17.5); LYMPH # 1.6 10^3/uL (1.5-5.0); LYMPH % 9.6 % (24.0-44.0); MEAN CORPUSCULAR HEMOGLOBIN 31.5 pg (27.0-33.0); MEAN CORPUSCULAR HGB CONC 35.7 g/dl (32.0-36.5); MEAN CORPUSCULAR VOLUME 88.2 fl (80.0-96.0); MONO # 1.1 10^3/uL (0.0-0.8); MONO % 6.6 % (2.0-8.0); NEUTROPHILS # 13.4 10^3/uL (1.5-8.5); NEUTROPHILS % 80.9 % (36.0-66.0); PLATELET COUNT, AUTOMATED 215 10^3/uL (150-450); RED BLOOD COUNT 4.51 10^6/uL (4.30-6.10); WHITE BLOOD COUNT 16.6 10^3/uL (4.0-10.0)
[2021-06-15 06:26] LABS: BLOOD UREA NITROGEN 28 MG/DL (7-18); CARBON DIOXIDE LEVEL 32 MEQ/L (21-32); CHLORIDE LEVEL 92 MEQ/L (98-107); CREATININE FOR GFR 1.18 MG/DL (0.70-1.30); GLOMERULAR FILTRATION RATE > 60.0 (>56); GLUCOSE, FASTING 145 MG/DL (70-100); POTASSIUM SERUM 3.4 MEQ/L (3.5-5.1); SODIUM LEVEL 129 MEQ/L (136-145)
[2021-06-15] MEDS: NS 1,000 ML IV SCH ×2 (09:00→16:41)
[2021-06-15] MEDS ORDERED: FLUBLOK(EGG FREE)(QUAD)INFLUENZA VACC 0.5ML SYRINGE 18YRS & OLDER IM ONE (09:00)
[2021-06-15] MEDS: ONDANSETRON 4MG/2ML VIAL IV PRN (10:27)
[2021-06-15] MEDS: POTASSIUM CHLORIDE 10MEQ SR TABLET PO SCH ×3 (14:11→21:23)
[2021-06-16] MEDS: PIPERACILLIN/TAZOBACTAM SOD 3.375 GM in D5W MINI-BAG PLUS 50 ML IV SCH ×4 (01:56→17:35)
[2021-06-16] MEDS: NS 1,000 ML IV SCH (01:57)
[2021-06-16 02:00] VITALS: BP 125/72
[2021-06-16] MEDS: MORPHINE 2 MG/ML 1ML VIAL (J2270) IV PRN ×2 (03:15→21:36)
[2021-06-16 05:46] LABS: BASO % 0.2 % (0.0-1.0); EOS % 0.2 % (0.0-3.0); HEMATOCRIT 40.2 % (42.0-52.0); HEMOGLOBIN 13.9 g/dl (13.5-17.5); LYMPH # 1.5 10^3/uL (1.5-5.0); LYMPH % 9.4 % (24.0-44.0); MEAN CORPUSCULAR HEMOGLOBIN 30.5 pg (27.0-33.0); MEAN CORPUSCULAR HGB CONC 34.6 g/dl (32.0-36.5); MEAN CORPUSCULAR VOLUME 88.4 fl (80.0-96.0); MONO # 1.2 10^3/uL (0.0-0.8); MONO % 7.9 % (2.0-8.0); NEUTROPHILS # 12.4 10^3/uL (1.5-8.5); NEUTROPHILS % 80.9 % (36.0-66.0); PLATELET COUNT, AUTOMATED 230 10^3/uL (150-450); RED BLOOD COUNT 4.55 10^6/uL (4.30-6.10); WHITE BLOOD COUNT 15.4 10^3/uL (4.0-10.0)
[2021-06-16 06:00] VITALS: BP 123/76
[2021-06-16 06:15] LABS: BLOOD UREA NITROGEN 14 MG/DL (7-18); CALCIUM LEVEL 7.7 MG/DL (8.5-10.1); CARBON DIOXIDE LEVEL 27 MEQ/L (21-32); CHLORIDE LEVEL 97 MEQ/L (98-107); CREATININE FOR GFR 0.78 MG/DL (0.70-1.30); GLOMERULAR FILTRATION RATE > 60.0 (>56); GLUCOSE, FASTING 138 MG/DL (70-100); POTASSIUM SERUM 3.6 MEQ/L (3.5-5.1); SODIUM LEVEL 132 MEQ/L (136-145)
[2021-06-16] MEDS ORDERED: FLUBLOK(EGG FREE)(QUAD)INFLUENZA VACC 0.5ML SYRINGE 18YRS & OLDER IM ONE (09:00)
[2021-06-16 10:00] VITALS: BP 137/77
[2021-06-16 14:00] VITALS: BP 157/84
[2021-06-16] MEDS ORDERED: PROHANCE 279.3MG/ML 5ML VIAL As Ordered ONE (14:40)
[2021-06-16] MEDS ORDERED: PROHANCE 279.3MG/ML 15ML VIAL As Ordered ONE (14:41)
[2021-06-16 18:00] VITALS: BP 148/73
[2021-06-16] MEDS: ONDANSETRON 4MG/2ML VIAL IV PRN (21:33)
[2021-06-16] MEDS: ACETAMINOPHEN TAB 650MG DOSE (2X325MG) PO PRN (21:37)
[2021-06-16 22:00] VITALS: BP 119/64
[2021-06-17] MEDS: PIPERACILLIN/TAZOBACTAM SOD 3.375 GM in D5W MINI-BAG PLUS 50 ML IV SCH ×4 (00:22→17:42)
[2021-06-17 05:56] LABS: BASO % 0.2 % (0.0-1.0); EOS # 0.1 10^3/uL (0.0-0.5); EOS % 0.4 % (0.0-3.0); HEMATOCRIT 39.7 % (42.0-52.0); HEMOGLOBIN 13.5 g/dl (13.5-17.5); LYMPH # 1.8 10^3/uL (1.5-5.0); LYMPH % 10.8 % (24.0-44.0); MEAN CORPUSCULAR HEMOGLOBIN 30.3 pg (27.0-33.0); MONO # 1.3 10^3/uL (0.0-0.8); MONO % 7.5 % (2.0-8.0); NEUTROPHILS # 13.4 10^3/uL (1.5-8.5); NEUTROPHILS % 79.6 % (36.0-66.0); PLATELET COUNT, AUTOMATED 262 10^3/uL (150-450); RED BLOOD COUNT 4.46 10^6/uL (4.30-6.10); WHITE BLOOD COUNT 16.9 10^3/uL (4.0-10.0)
[2021-06-17 06:00] VITALS: BP 127/67
[2021-06-17 06:15] LABS: BLOOD UREA NITROGEN 12 MG/DL (7-18); CALCIUM LEVEL 8.1 MG/DL (8.5-10.1); CARBON DIOXIDE LEVEL 32 MEQ/L (21-32); CHLORIDE LEVEL 97 MEQ/L (98-107); CREATININE FOR GFR 0.81 MG/DL (0.70-1.30); GLOMERULAR FILTRATION RATE > 60.0 (>56); GLUCOSE, FASTING 124 MG/DL (70-100); HEMOGLOBIN A1c 6.5 %; POTASSIUM SERUM 3.1 MEQ/L (3.5-5.1); SODIUM LEVEL 134 MEQ/L (136-145)
[2021-06-17 10:00] VITALS: BP 128/69
[2021-06-17 14:00] VITALS: BP 126/72
[2021-06-17] MEDS ORDERED: LIDOCAINE 1% MDV 20ML VIAL As Ordered ONE (15:44)
[2021-06-17 16:10] LABS: INR 1.01; PROTHROMBIN TIME 13.7 SECONDS (12.7-14.5)
[2021-06-17] MEDS: POTASSIUM CHLORIDE 10MEQ SR TABLET PO SCH ×2 (17:42→21:16)
[2021-06-17 18:00] VITALS: BP 129/72
[2021-06-17 22:00] VITALS: BP 118/63
[2021-06-18] MEDS: PIPERACILLIN/TAZOBACTAM SOD 3.375 GM in D5W MINI-BAG PLUS 50 ML IV SCH ×5 (00:51→23:43)
[2021-06-18 06:00] VITALS: BP 132/77
[2021-06-18 06:23] LABS: BASO # 0.1 10^3/uL (0.0-0.2); BASO % 0.3 % (0.0-1.0); EOS # 0.1 10^3/uL (0.0-0.5); EOS % 0.5 % (0.0-3.0); HEMATOCRIT 41.1 % (42.0-52.0); HEMOGLOBIN 14.2 g/dl (13.5-17.5); LYMPH % 12.4 % (24.0-44.0); MEAN CORPUSCULAR HEMOGLOBIN 30.9 pg (27.0-33.0); MEAN CORPUSCULAR HGB CONC 34.5 g/dl (32.0-36.5); MEAN CORPUSCULAR VOLUME 89.5 fl (80.0-96.0); MONO # 1.1 10^3/uL (0.0-0.8); MONO % 6.9 % (2.0-8.0); NEUTROPHILS # 12.3 10^3/uL (1.5-8.5); PLATELET COUNT, AUTOMATED 295 10^3/uL (150-450); RED BLOOD COUNT 4.59 10^6/uL (4.30-6.10); WHITE BLOOD COUNT 15.8 10^3/uL (4.0-10.0)
[2021-06-18 06:50] LABS: BLOOD UREA NITROGEN 12 MG/DL (7-18); CALCIUM LEVEL 8.2 MG/DL (8.5-10.1); CARBON DIOXIDE LEVEL 32 MEQ/L (21-32); CHLORIDE LEVEL 98 MEQ/L (98-107); CREATININE FOR GFR 0.71 MG/DL (0.70-1.30); GLOMERULAR FILTRATION RATE > 60.0 (>56); GLUCOSE, FASTING 111 MG/DL (70-100); POTASSIUM SERUM 3.7 MEQ/L (3.5-5.1); SODIUM LEVEL 136 MEQ/L (136-145)
[2021-06-18] MEDS: POTASSIUM CHLORIDE 10MEQ SR TABLET PO SCH ×3 (08:19→20:46)
[2021-06-18 10:00] VITALS: BP 128/69
[2021-06-18 14:00] VITALS: BP 129/70
[2021-06-18 18:00] VITALS: BP 133/71
[2021-06-18 22:00] VITALS: BP 108/74
[2021-06-19 02:00] VITALS: BP 137/76
[2021-06-19] MEDS: PIPERACILLIN/TAZOBACTAM SOD 3.375 GM in D5W MINI-BAG PLUS 50 ML IV SCH ×4 (05:35→23:46)
[2021-06-19 05:51] LABS: BASO % 0.3 % (0.0-1.0); EOS # 0.1 10^3/uL (0.0-0.5); EOS % 0.6 % (0.0-3.0); HEMATOCRIT 39.9 % (42.0-52.0); HEMOGLOBIN 13.6 g/dl (13.5-17.5); LYMPH # 2.2 10^3/uL (1.5-5.0); LYMPH % 14.9 % (24.0-44.0); MEAN CORPUSCULAR HEMOGLOBIN 30.6 pg (27.0-33.0); MEAN CORPUSCULAR HGB CONC 34.1 g/dl (32.0-36.5); MEAN CORPUSCULAR VOLUME 89.7 fl (80.0-96.0); MONO # 0.7 10^3/uL (0.0-0.8); MONO % 4.8 % (2.0-8.0); NEUTROPHILS # 11.4 10^3/uL (1.5-8.5); PLATELET COUNT, AUTOMATED 317 10^3/uL (150-450); RED BLOOD COUNT 4.45 10^6/uL (4.30-6.10); WHITE BLOOD COUNT 14.9 10^3/uL (4.0-10.0)
[2021-06-19 06:00] VITALS: BP 132/72
[2021-06-19 06:29] LABS: ALBUMIN 2.1 GM/DL (3.2-5.2); ALT/SGPT 43 U/L (12-78); BILIRUBIN,TOTAL 0.7 MG/DL (0.2-1.0); BLOOD UREA NITROGEN 12 MG/DL (7-18); CALCIUM LEVEL 8.2 MG/DL (8.5-10.1); CARBON DIOXIDE LEVEL 27 MEQ/L (21-32); CHLORIDE LEVEL 102 MEQ/L (98-107); GLOMERULAR FILTRATION RATE > 60.0 (>56); GLUCOSE, FASTING 127 MG/DL (70-100); SODIUM LEVEL 136 MEQ/L (136-145); TOTAL PROTEIN 5.6 GM/DL (6.4-8.2)
[2021-06-19 07:02] LABS: ERYTHROCYTE SEDIMENTATION RATE 36 mm/hr (0-20)
[2021-06-19] MEDS: NYSTATIN 100,000 UNITS/GM TOPICAL PWD 15 GM TOP SCH ×2 (09:00→21:00)
[2021-06-19] MEDS: POTASSIUM CHLORIDE 10MEQ SR TABLET PO SCH (09:43)
[2021-06-19 10:00] VITALS: BP 138/77
[2021-06-19] MEDS ORDERED: fentaNYL 100 MCG/2 ML INJECTION As Ordered ONE (11:40)
[2021-06-19] MEDS ORDERED: diphenhydrAMINE 50MG/ML VIAL (J1200) As Ordered ONE (11:40)
[2021-06-19] MEDS ORDERED: MIDAZOLAM INJ 2MG/2ML VIAL (J2250 PER 1MG) As Ordered ONE (11:40)
[2021-06-19] MEDS ORDERED: LIDOCAINE 1% MDV 20ML VIAL As Ordered ONE ×2 (11:41→13:24)
[2021-06-19 14:00] VITALS: BP 136/79
[2021-06-19] MEDS: MORPHINE 2 MG/ML 1ML VIAL (J2270) IV PRN ×3 (15:05→23:13)
[2021-06-19 18:00] VITALS: BP 132/65
[2021-06-19] MEDS: SODIUM CHLORIDE 0.9% INJ 10 ML SYR IV SCH (18:22)
[2021-06-19] MEDS: SODIUM CHLORIDE 0.9% INJ 10 ML SYR IV PRN ×2 (19:54→20:28)
[2021-06-19 22:00] VITALS: BP 157/95
[2021-06-20] VITALS (7 sets, daily range): BP systolic 120–144; BP diastolic 62–79
[2021-06-20] MEDS: SODIUM CHLORIDE 0.9% INJ 10 ML SYR IV PRN ×2 (01:18→13:24)
[2021-06-20] MEDS: PIPERACILLIN/TAZOBACTAM SOD 3.375 GM in D5W MINI-BAG PLUS 50 ML IV SCH ×3 (05:10→17:34)
[2021-06-20] MEDS: SODIUM CHLORIDE 0.9% INJ 10 ML SYR IV SCH ×2 (06:37→17:35)
[2021-06-20] MEDS ORDERED: NORCO, ANEXSIA 5/325MG TABLET (HYDROcodone/ACETAMINOPHEN) PO PRN (07:40)
[2021-06-20] MEDS: NYSTATIN 100,000 UNITS/GM TOPICAL PWD 15 GM TOP SCH ×2 (09:00→21:00)
[2021-06-20] MEDS: metroNIDAZOLE (FLAGYL) 500MG TABLET PO SCH (21:35)
[2021-06-21 04:00] VITALS: BP 150/94
[2021-06-21 05:52] LABS: BASO # 0.1 10^3/uL (0.0-0.2); BASO % 0.5 % (0.0-1.0); EOS # 0.1 10^3/uL (0.0-0.5); EOS % 0.9 % (0.0-3.0); HEMOGLOBIN 14.4 g/dl (13.5-17.5); LYMPH # 1.7 10^3/uL (1.5-5.0); LYMPH % 13.9 % (24.0-44.0); MEAN CORPUSCULAR HEMOGLOBIN 30.6 pg (27.0-33.0); MEAN CORPUSCULAR HGB CONC 33.5 g/dl (32.0-36.5); MEAN CORPUSCULAR VOLUME 91.3 fl (80.0-96.0); MONO # 0.6 10^3/uL (0.0-0.8); MONO % 4.5 % (2.0-8.0); NEUTROPHILS # 9.7 10^3/uL (1.5-8.5); NEUTROPHILS % 78.6 % (36.0-66.0); PLATELET COUNT, AUTOMATED 313 10^3/uL (150-450); RED BLOOD COUNT 4.71 10^6/uL (4.30-6.10); WHITE BLOOD COUNT 12.3 10^3/uL (4.0-10.0)
[2021-06-21] MEDS: metroNIDAZOLE (FLAGYL) 500MG TABLET PO SCH ×2 (06:00→14:11)
[2021-06-21] MEDS: SODIUM CHLORIDE 0.9% INJ 10 ML SYR IV SCH (06:01)
[2021-06-21 06:23] LABS: BLOOD UREA NITROGEN 15 MG/DL (7-18); CALCIUM LEVEL 8.6 MG/DL (8.5-10.1); CARBON DIOXIDE LEVEL 27 MEQ/L (21-32); CHLORIDE LEVEL 105 MEQ/L (98-107); CREATININE FOR GFR 0.71 MG/DL (0.70-1.30); GLOMERULAR FILTRATION RATE > 60.0 (>56); GLUCOSE, FASTING 123 MG/DL (70-100); SODIUM LEVEL 138 MEQ/L (136-145)
[2021-06-21 07:58] VITALS: BP 150/94
[2021-06-21] MEDS: NYSTATIN 100,000 UNITS/GM TOPICAL PWD 15 GM TOP SCH (07:58)
[2021-06-21] MEDS ORDERED: cefTRIAXone SOD 2 GM in D5W MINI-BAG PLUS 50 ML IV SCH (08:00)
[2021-06-21] MEDS: SODIUM CHLORIDE 0.9% INJ 10 ML SYR IV PRN (09:03)
[2021-06-21 10:00] VITALS: BP 144/75
[2021-06-21] MEDS ORDERED: FLAG500T PO (10:03)
[2021-06-21 14:00] VITALS: BP 165/93
== END 2021-06-21 15:50 | disposition home or self-care (01) | DRG 244 ==
LOC: M ED 13:04 → M ED INP 13:05 → ENRESERV 22:28 → M MSPAV 06-15 00:32
PROVIDERS: ADMIT Surgery; ATTEND Surgery
PROC: 0FB03ZX Excision of Liver, Percutaneous Approach, Diagnostic (ICD-10-PCS; 2021-06-17)
PROC: 02HV33Z Insertion of Infusion Device into Superior Vena Cava, Percutaneous Approach (ICD-10-PCS; 2021-06-19)
PROC: 0FB03ZX Excision of Liver, Percutaneous Approach, Diagnostic (ICD-10-PCS; principal; 2021-06-19 10:30)
DX: K57.20 Diverticulitis of large intestine with perforation and abscess without bleeding (principal); K75.0 Abscess of liver; E66.01 Morbid (severe) obesity due to excess calories; N43.3 Hydrocele, unspecified; G47.33 Obstructive sleep apnea (adult) (pediatric); I10 Essential (primary) hypertension; Z68.35 Body mass index [BMI] 35.0-35.9, adult; L40.8 Other psoriasis; Z79.899 Other long term (current) drug therapy; K43.2 Incisional hernia without obstruction or gangrene; E87.6 Hypokalemia

== ENCOUNTER → 2021-06-25 | Outpatient (REF) | payer BC ==
[~2021-06-25] MED LIST changes: +ACET-683 PO; +CHLO125TA PO; +CIPR500T39 PO; +FLAG500T PO; +LISI10TA22 PO
[2021-06-25 15:44] LABS: BASO # 0.1 10^3/uL (0.0-0.2); BASO % 0.5 % (0.0-1.0); EOS # 0.1 10^3/uL (0.0-0.5); EOS % 1.1 % (0.0-3.0); HEMATOCRIT 40.3 % (42.0-52.0); HEMOGLOBIN 12.9 g/dl (13.5-17.5); LYMPH # 1.8 10^3/uL (1.5-5.0); LYMPH % 17.3 % (24.0-44.0); MEAN CORPUSCULAR HEMOGLOBIN 30.2 pg (27.0-33.0); MEAN CORPUSCULAR VOLUME 94.4 fl (80.0-96.0); MONO # 0.6 10^3/uL (0.0-0.8); MONO % 6.1 % (2.0-8.0); NEUTROPHILS # 7.7 10^3/uL (1.5-8.5); PLATELET COUNT, AUTOMATED 321 10^3/uL (150-450); RED BLOOD COUNT 4.27 10^6/uL (4.30-6.10); WHITE BLOOD COUNT 10.4 10^3/uL (4.0-10.0)
[2021-06-25 16:07] LABS: ERYTHROCYTE SEDIMENTATION RATE 49 mm/hr (0-20)
[2021-06-25 16:16] LABS: ALBUMIN 2.6 GM/DL (3.2-5.2); ALT/SGPT 26 U/L (12-78); BILIRUBIN,TOTAL 0.2 MG/DL (0.2-1.0); BLOOD UREA NITROGEN 14 MG/DL (7-18); CALCIUM LEVEL 8.7 MG/DL (8.5-10.1); CARBON DIOXIDE LEVEL 28 MEQ/L (21-32); CHLORIDE LEVEL 103 MEQ/L (98-107); CREATININE FOR GFR 0.74 MG/DL (0.70-1.30); GLOMERULAR FILTRATION RATE > 60.0 (>56); GLUCOSE, FASTING 110 MG/DL (70-100); POTASSIUM SERUM 4.5 MEQ/L (3.5-5.1); SODIUM LEVEL 138 MEQ/L (136-145); TOTAL PROTEIN 6.7 GM/DL (6.4-8.2)
== END ==
LOC: M LAB REF 15:13
PROVIDERS: ATTEND Internal Medicine Infectious Disease
DX: K75.0 Abscess of liver (principal); S36.11 Injury of liver

== ENCOUNTER → 2021-07-02 | Outpatient (REF) | payer BC ==
[2021-07-02 15:23] LABS: BASO # 0.1 10^3/uL (0.0-0.2); BASO % 0.7 % (0.0-1.0); EOS # 0.1 10^3/uL (0.0-0.5); EOS % 1.3 % (0.0-3.0); HEMATOCRIT 43.8 % (42.0-52.0); HEMOGLOBIN 14.2 g/dl (13.5-17.5); LYMPH # 1.7 10^3/uL (1.5-5.0); LYMPH % 18.6 % (24.0-44.0); MEAN CORPUSCULAR HEMOGLOBIN 30.5 pg (27.0-33.0); MEAN CORPUSCULAR HGB CONC 32.4 g/dl (32.0-36.5); MEAN CORPUSCULAR VOLUME 94.2 fl (80.0-96.0); MONO # 0.6 10^3/uL (0.0-0.8); NEUTROPHILS # 6.6 10^3/uL (1.5-8.5); NEUTROPHILS % 71.3 % (36.0-66.0); PLATELET COUNT, AUTOMATED 255 10^3/uL (150-450); RED BLOOD COUNT 4.65 10^6/uL (4.30-6.10); WHITE BLOOD COUNT 9.2 10^3/uL (4.0-10.0)
[2021-07-02 15:49] LABS: ALBUMIN 3.2 GM/DL (3.2-5.2); ALT/SGPT 30 U/L (12-78); BILIRUBIN,TOTAL 0.2 MG/DL (0.2-1.0); BLOOD UREA NITROGEN 14 MG/DL (7-18); C REACTIVE PROTEIN QUANTITATIV 0.91 MG/DL (0.00-0.30); CALCIUM LEVEL 8.9 MG/DL (8.5-10.1); CARBON DIOXIDE LEVEL 27 MEQ/L (21-32); CHLORIDE LEVEL 103 MEQ/L (98-107); CREATININE FOR GFR 0.79 MG/DL (0.70-1.30); GLOMERULAR FILTRATION RATE > 60.0 (>56); GLUCOSE, FASTING 108 MG/DL (70-100); SODIUM LEVEL 141 MEQ/L (136-145); TOTAL PROTEIN 7.4 GM/DL (6.4-8.2)
[2021-07-02 17:21] LABS: ERYTHROCYTE SEDIMENTATION RATE 37 mm/hr (0-20)
== END ==
LOC: M LAB REF 15:11
PROVIDERS: ATTEND Internal Medicine Infectious Disease
DX: K75.0 Abscess of liver (principal); S36.11 Injury of liver; X58.XXXS Exposure to other specified factors, sequela

== ENCOUNTER → 2021-07-02 | Outpatient (POV) | payer BC ==
[~2021-07-02] VITALS: Ht 175.3 cm; Wt 105.0 kg
[2021-07-02 12:30] VITALS: BP 160/84
--- NOTE | 2021-07-04 11:38 | IRPN ---
[facility] IR Progress Note IR Progress Note DATE: Jul 02, 2021 FOLLOW-UP: Patient presented to the hospital with fevers chills and right upper quadrant pain. He was diagnosed with 2 liver abscesses, in combination with diverticulitis and underwent two 10 [place] liver drain placements with me on June 19. Patient's pain has since resolved. He denies fevers or chills. He brings in his notebook with information on drainage. Drainage appears to have decreased from 15 mL from each drain back on 06/21 to now just residual in the tube. Patient is not flushing the drains. ON EXAMINATION: 2 liver abscess drains with minimal drainage in the bag. Both drains were flushed and are patent. IMPRESSION: Doing well status post 2 liver drain placements for liver abscesses. Patient is to follow-up with ID, he has an appointment on July 08. I will go ahead and order a CT abdomen with IV contrast to evaluate for resolution of the liver abscesses prior to pulling the drainage tubes. CC Dr. Shannon Leos Allergies Coded Allergies: No Known Allergies (Unverified , 02/01/19) VS,Fishbone, I+O VS, Fishbone, I+O Vital Signs Date Time Temp Pulse Resp B/P (MAP) Pulse Ox O2 Delivery O2 Flow Rate FiO2 07/02/21 12:30 97.9 77 16 160/84 (109) 95 Room Air SERGIO SMITH MD Jul 04, 2021 11:38
== END ==
LOC: M IRPOV 11:21
PROVIDERS: ATTEND Radiology Diagnostic Radiology
DX: K75.0 Abscess of liver (principal); K57.32 Diverticulitis of large intestine without perforation or abscess without bleeding

== ENCOUNTER → 2021-07-08 | Outpatient (CLI) | payer BC ==
[~2021-07-08] MED LIST changes: +ISOVUE-370 76% 100ML VIAL As Ordered ONE
--- NOTE | 2021-07-08 08:12 | REP ---
INDICATION: LIVER ABSCESS. COMPARISON: 06/14/2021 TECHNIQUE: Axial contrast-enhanced images of the abdomen using 100 cc Isovue 370 intravenous contrast material with coronal and sagittal reformations. . This CT examination was performed using the following dose reduction techniques: Automated exposure control, adjustment of mA and/or kv according to the patient's size, and use of iterative reconstruction technique. FINDINGS: Two percutaneous intrahepatic pigtail catheters are identified at the site of previous hepatic abscesses which appear to have essentially completely resolved leaving only behind very subtle homogeneous low-density change. Correlation with drainage output is recommended. The liver is otherwise relatively normal and without further acute hepatic abnormality identified. Mild hepatosteatosis cannot be excluded. Spleen, pancreas, gallbladder, bilateral adrenal glands and kidneys are normal/stable as compared with prior examination. No ascites. No free air. No significant adenopathy. Lung bases demonstrate a small area of presumed rounded atelectasis versus consolidation along the medial right base and trace bibasilar fibroatelectatic changes. No effusion. IMPRESSION: 1. Previously identified complex hepatic abscesses appear to have essentially resolved. Findings should be correlated with drainage output before removing catheters. 2. Underlying mild hepatosteatosis. No new acute focal hepatic lesion identified. 3. Small focus of consolidation versus rounded atelectasis at the medial right lung base. <Electronically signed by Narinder Hopkins > 07/08/21 0519
== END ==
LOC: M RAD 06:51
PROVIDERS: ATTEND Radiology Diagnostic Radiology
DX: K75.0 Abscess of liver (principal)
CPT/HCPCS: 74160; Q9967

== ENCOUNTER → 2021-07-09 | Outpatient (POV) | payer BC ==
[~2021-07-09] VITALS: Ht 175.3 cm; Wt 113.6 kg
[~2021-07-09] MED LIST changes: -ISOVUE-370 76% 100ML VIAL As Ordered ONE
[2021-07-09 09:05] VITALS: BP 159/86
--- NOTE | 2021-07-11 14:06 | IRPN ---
[facility] IR Progress Note IR Progress Note DATE: Jul 09, 2021 FOLLOW-UP: Patient is 3-week status post 2 drain placements in the liver, for liver abscess. Patient's right upper quadrant pain, fevers and chills have resolved. No further pain, nausea or vomiting. Less than 10 ml drainage per day per drain. ON EXAMINATION: [address] Imaging: I personally reviewed the CT abdomen with contrast performed 07/08/2021. Both abscesses in the liver have now resolved. Both drains were removed in its entirety. A sterile dressing was applied to the site. IMPRESSION: Good result status post percutaneous drainage for 2 liver abscesses. Both drains have been removed successfully. Thank you for this referral. CC Dr. Shannon Leos Allergies Coded Allergies: No Known Allergies (Unverified , 02/01/19) VS,Fishbone, I+O VS, Fishbone, I+O Vital Signs Date Time Temp Pulse Resp B/P (MAP) Pulse Ox O2 Delivery O2 Flow Rate FiO2 07/09/21 09:05 98.1 69 20 159/86 (110) 99 Room Air SERGIO SMITH MD Jul 11, 2021 14:06
== END ==
LOC: M IRPOV 08:39
PROVIDERS: ATTEND Radiology Diagnostic Radiology
DX: Z48.815 Encounter for surgical aftercare following surgery on the digestive system (principal); K75.0 Abscess of liver

== ENCOUNTER → 2021-07-29 | Outpatient (CLI) | payer BC ==
[2021-07-29 10:28] LABS: BASO # 0.1 10^3/uL (0.0-0.2); BASO % 0.7 % (0.0-1.0); EOS # 0.3 10^3/uL (0.0-0.5); HEMATOCRIT 43.3 % (42.0-52.0); HEMOGLOBIN 14.5 g/dl (13.5-17.5); LYMPH % 22.4 % (24.0-44.0); MEAN CORPUSCULAR HEMOGLOBIN 30.8 pg (27.0-33.0); MEAN CORPUSCULAR HGB CONC 33.5 g/dl (32.0-36.5); MEAN CORPUSCULAR VOLUME 91.9 fl (80.0-96.0); MONO # 0.7 10^3/uL (0.0-0.8); MONO % 7.3 % (2.0-8.0); NEUTROPHILS % 65.9 % (36.0-66.0); PLATELET COUNT, AUTOMATED 211 10^3/uL (150-450); RED BLOOD COUNT 4.71 10^6/uL (4.30-6.10); WHITE BLOOD COUNT 9.1 10^3/uL (4.0-10.0)
[2021-07-29 11:06] LABS: ERYTHROCYTE SEDIMENTATION RATE 22 mm/hr (0-20)
[2021-07-29 11:17] LABS: ALBUMIN 3.1 GM/DL (3.2-5.2); ALT/SGPT 26 U/L (12-78); BILIRUBIN,TOTAL 0.4 MG/DL (0.2-1.0); BLOOD UREA NITROGEN 11 MG/DL (7-18); C REACTIVE PROTEIN QUANTITATIV 1.75 MG/DL (0.00-0.30); CALCIUM LEVEL 8.9 MG/DL (8.5-10.1); CARBON DIOXIDE LEVEL 27 MEQ/L (21-32); CHLORIDE LEVEL 106 MEQ/L (98-107); CREATININE FOR GFR 0.88 MG/DL (0.70-1.30); GLOMERULAR FILTRATION RATE > 60.0 (>56); GLUCOSE, FASTING 140 MG/DL (70-100); POTASSIUM SERUM 4.1 MEQ/L (3.5-5.1); SODIUM LEVEL 138 MEQ/L (136-145); TOTAL PROTEIN 7.2 GM/DL (6.4-8.2)
== END ==
LOC: M PLALAB 08:47
PROVIDERS: ATTEND Internal Medicine Infectious Disease
DX: A49.1 Streptococcal infection, unspecified site (principal)

== ENCOUNTER 2023-01-09 09:04 | Day surgery (SDC) | payer BC ==
[~2023-01-09] VITALS: Ht 175.3 cm; Wt 113.6 kg
[~2023-01-09 09:04] MED LIST changes: +B-COCAP8 PO; +D3 H10002 PO; +NS 1,000 ML IV ONE
[2023-01-09] MEDS ORDERED: propofoL 200 MG/20 ML VIAL As Ordered ONE (09:48)
[2023-01-09] MEDS ORDERED: LIDOCAINE 2% 100MG/5ML SDV (FOR ANES.) As Ordered ONE (09:48)
[2023-01-09 11:30] VITALS: BP 153/88
== END 2023-01-09 11:39 | disposition home or self-care (01) ==
LOC: M OPP 09:04
PROVIDERS: ATTEND Surgery
DX: Z12.11 Encounter for screening for malignant neoplasm of colon (principal); Z80.0 Family history of malignant neoplasm of digestive organs; D12.6 Benign neoplasm of colon, unspecified; K64.8 Other hemorrhoids; K57.30 Diverticulosis of large intestine without perforation or abscess without bleeding; K63.89 Other specified diseases of intestine; G47.33 Obstructive sleep apnea (adult) (pediatric); I10 Essential (primary) hypertension; Z79.899 Other long term (current) drug therapy

== ENCOUNTER → 2023-02-09 | Outpatient (CLI) | payer BC ==
[~2023-02-09] MED LIST changes: -NS 1,000 ML IV ONE
[2023-02-09 17:54] LABS: BASO # 0.1 10^3/uL (0.0-0.2); BASO % 0.5 % (0.0-1.0); EOS # 0.1 10^3/uL (0.0-0.5); EOS % 0.9 % (0.0-3.0); HEMATOCRIT 48.6 % (42.0-52.0); HEMOGLOBIN 16.2 g/dl (13.5-17.5); LYMPH # 2.1 10^3/uL (1.5-5.0); MEAN CORPUSCULAR HEMOGLOBIN 30.1 pg (27.0-33.0); MEAN CORPUSCULAR HGB CONC 33.3 g/dl (32.0-36.5); MEAN CORPUSCULAR VOLUME 90.2 fl (80.0-96.0); MONO # 0.7 10^3/uL (0.0-0.8); MONO % 5.6 % (2.0-8.0); NEUTROPHILS # 10.1 10^3/uL (1.5-8.5); NEUTROPHILS % 76.5 % (36.0-66.0); PLATELET COUNT, AUTOMATED 244 10^3/uL (150-450); RED BLOOD COUNT 5.39 10^6/uL (4.30-6.10); WHITE BLOOD COUNT 13.3 10^3/uL (4.0-10.0)
[2023-02-09 18:23] LABS: LIPASE 34 U/L (12-53)
[2023-02-09 18:25] LABS: ALKALINE PHOSPHATASE 70 U/L (46-116); ALT/SGPT 31 U/L (7.0-40); AST/SGOT 23 U/L (<34); BILIRUBIN,TOTAL 0.5 MG/DL (0.3-1.2); BLOOD UREA NITROGEN 16 MG/DL (9-23); CALCIUM LEVEL 9.5 MG/DL (8.5-10.1); CARBON DIOXIDE LEVEL 26 MMOL/L (20-31); CHLORIDE LEVEL 105 MMOL/L (98-107); CREATININE FOR GFR 0.77 MG/DL (0.70-1.30); GLOMERULAR FILTRATION RATE > 60.0 (>56); GLUCOSE, FASTING 107 MG/DL (60-100); SODIUM LEVEL 137 MMOL/L (136-145); TOTAL PROTEIN 7.4 G/DL (5.7-8.2)
[2023-02-09 18:33] LABS: ERYTHROCYTE SEDIMENTATION RATE 40 mm/hr (0-20)
== END ==
LOC: M PLALAB 15:20
PROVIDERS: ATTEND Physician Assistant
DX: K57.92 Diverticulitis of intestine, part unspecified, without perforation or abscess without bleeding (principal); Z87.19 Personal history of other diseases of the digestive system

== ENCOUNTER → 2023-02-10 | Outpatient (CLI) | payer BC ==
[~2023-02-10] MED LIST changes: +GASTROGRAFIN SOLUTION 30ML As Ordered ONE; +ISOVUE-370 76% 100ML VIAL As Ordered ONE
== END ==
LOC: M RAD 09:40
PROVIDERS: ATTEND Physician Assistant
DX: K57.30 Diverticulosis of large intestine without perforation or abscess without bleeding (principal); K57.92 Diverticulitis of intestine, part unspecified, without perforation or abscess without bleeding; R16.0 Hepatomegaly, not elsewhere classified

== ENCOUNTER → 2023-11-05 | Outpatient (CLI) | payer BC ==
[~2023-11-05] MED LIST changes: -GASTROGRAFIN SOLUTION 30ML As Ordered ONE; -ISOVUE-370 76% 100ML VIAL As Ordered ONE
[2023-11-05 17:50] LABS: ALKALINE PHOSPHATASE 65 U/L (46-116); ALT/SGPT 38 U/L (7.0-40); AST/SGOT 29 U/L (<34); BILIRUBIN,TOTAL 0.4 MG/DL (0.3-1.2); BLOOD UREA NITROGEN 17 MG/DL (9-23); CALCIUM LEVEL 9.7 MG/DL (8.5-10.1); CARBON DIOXIDE LEVEL 26 MMOL/L (20-31); CHLORIDE LEVEL 104 MMOL/L (98-107); CHOLESTEROL LEVEL 187 MG/DL (<200); CHOLESTEROL RISK RATIO 4.69 (<5); CREATININE FOR GFR 0.68 MG/DL (0.70-1.30); GLOMERULAR FILTRATION RATE > 60.0 (>56); GLUCOSE, FASTING 148 MG/DL (60-100); HDL CHOLESTEROL 39.8 MG/DL (>40); LDL CHOLESTEROL 119.8 MG/DL (<100); NON-HDL-C 147.2 MG/DL; POTASSIUM SERUM 4.2 MMOL/L (3.5-5.1); PSA SCREENING 1.16 NG/ML (< 4.00); SODIUM LEVEL 138 MMOL/L (136-145); TOTAL PROTEIN 8.3 G/DL (5.7-8.2); TRIGLYCERIDES LEVEL 137 MG/DL (<150)
[2023-11-05 17:51] LABS: THYROID STIMULATING HORMONE 0.482 uIU/ML (0.55-4.78)
[2023-11-05 18:03] LABS: HEMOGLOBIN A1c 5.9 % (4.0-6.0)
[2023-11-05 18:05] LABS: ANTI-STREPTOLYSIN O QUANT > 1973.7 IU/ML (<195)
== END ==
LOC: M WUC 14:10
PROVIDERS: ATTEND Nurse Practitioner Adult Health
DX: Z00.00 Encounter for general adult medical examination without abnormal findings (principal); Z13.29 Encounter for screening for other suspected endocrine disorder; L40.4 Guttate psoriasis